=== PATIENT | female | born 1945 | race Caucasian/White ===

== ENCOUNTER 2021-03-02 13:55 | Emergency (ER) | payer MEDICARE, BC ==
[2021-03-02] MEDS ORDERED: Zofran 4 MG/2 ML VIAL IV ONE (14:14)
[2021-03-02] MEDS ORDERED: ANTIVERT 25 MG PO ONE (14:14)
[2021-03-02] MEDS ORDERED: Sodium Chloride 0.9% 500 ML 500 ML IV ONE ×2 (14:16→14:19)
[2021-03-02] MEDS ORDERED: Zofran 4 MG/2 ML VIAL ONE (14:19)
[2021-03-02] MEDS ORDERED: ANTIVERT 25 MG ONE (14:19)
[2021-03-02 14:28] LABS: Absolute Neutrophil Ct (ANC) 5.27 (1.4-6.9); BASOPHIL % 0.4 % (0.0-0.4); Basophil (Absolute #) 0.03 (0-0.4); Eosinophil % 1.3 % (0.00-5.0); Lymphocyte (Absolute #) 1.55 (1.0-4.6); Lymphocytes % 20.3 % (24.0-44.0); Mean Cell Volume 87.1 fl (78-100); Mean Corpuscular Hemoglobin 29.7 pg (26-32); Mean Corpuscular Hgb Concent. 34.1 g/dl (32-36); Mean Platelet Volume 10.8 fl (7.5-11.0); Monocyte (Absolute #) 0.69 (0.0-1.3); Platelet Count 279 K/mm3 (150-450); Red Blood Count 5.05 M/mm3 (4.1-5.4); Red Cell Distribution Width 12.5 % (11.5-14.0); White Blood Count 7.6 K/mm3 (4.0-10.5)
[2021-03-02 14:41] LABS: ALBUMIN 4.7 g/dL (3.5-5.0); ALKALINE PHOSPHATASE 70 U/L (38-126); ANION GAP 18.1 MEQ/L (5-15); BLOOD UREA NITROGEN 19 mg/dL (7-17); CHLORIDE 106 mmol/L (98-107); Carbon Dioxide 18 mmol/L (22-30); Creatinine 1 0.78 mg/dL (0.52-1.04); EST GLOMERULAR FILTRATION RATE > 60.0 ML/MIN; Glucose 132 mg/dL (74-106); MAGNESIUM 2.2 mg/dL (1.6-2.3); Potassium 3.5 mmol/L (3.5-5.1); SGOT/AST 44 U/L (14-36); SGPT/ALT 23 U/L (0-35); SODIUM 138 mmol/L (137-145); Total Protein 8.4 g/dL (6.3-8.2)
--- NOTE | 2021-03-02 14:50 | ERPHSYRPT ---
- History of Present Illness Time Seen by Provider: 03/02/21 13:56 Source: patient, family Exam Limitations: no limitations Patient Subjective Stated Complaint: SOB Triage Nursing Assessment: Patient brought back to ED via w/c and transferred to bed with assist of 1. Patient A+O X3. Patient's skin pink, warm and dry. Patient states she was sitting at work when she got numb and tingling in her legs and arms and felt dizzy. Patient complains of a "funny feeling" in the top of her abdomen. Patient complains of nausea. Patient also complains of occasional SOB. Lungs clear a/p jose. Patient has a feeling of doom that something is wrong. Physician History: 75 years old female presented in the ER with chief complaint of sudden onset feeling dizzy lightheaded while she was sitting on a chair with a feeling as if she was going to pass. Patient report feeling lightheaded dizzy with movements of her head and feels a little better with closing her eyes. Reports spinning sensation with movements of head. She also reports sudden tingling sensation in both feet and shaking of both arms. Denies any focal weakness. No difficulty speech or visual symptoms. Denies any chest pain palpitations or shortness of breath but did have some nausea with dry heaving but no vomiting. Denies any abdominal pain. Timing/Duration: today, hour(s) (3.5), sudden, improved Severity: moderate Character of Deficits: altered sensation Deficits: off balance Baseline/Normal Cognition: alert oriented x 3 Current Cognition: alert oriented x 3 Baseline Gait: walks w/o assistance Associated Symptoms: fatigue, nausea, numbness/tingling in legs/feet, trouble walking, No loss of consciousness, No vomiting, No weakness, No muscle spasms, No seizures, No slurred speech, No chest pain Allergies/Adverse Reactions: ampicillin Allergy (Verified 03/02/21 13:56) codeine Allergy (Verified 03/02/21 13:56) egg Allergy (Verified 03/02/21 13:56) yellow dye Allergy (Verified 03/02/21 13:56) Home Medications: Multivitamin 1 tab PO DAILY 03/02/21 [History] Hx Tetanus, Diphtheria Vaccination/Date Given: No Hx Influenza Vaccination/Date Given: No Hx Pneumococcal Vaccination/Date Given: No Immunizations Up to Date: Yes Travel Risk - International Travel Have you traveled outside of the country in past 3 weeks: No - Coronavirus Screening Are you exhibiting any of the following symptoms?: No Close contact with a COVID-19 positive Pt in past 14-21 Days: No - Vaccine Status Have you recieved a Covid-19 vaccination: Yes Arnp: [employer] - Review of Systems Constitutional: Fatigue, Weakness Eyes: No Symptoms Ears, Nose, & Throat: No Symptoms Respiratory: No Symptoms Cardiac: No Symptoms Abdominal/Gastrointestinal: Nausea Genitourinary Symptoms: No Symptoms Musculoskeletal: No Symptoms Skin: No Symptoms Neurological: Dizziness, Gait Changes, Sensory Changes Psychological: No Symptoms Endocrine: No Symptoms Hematologic/Lymphatic: No Symptoms Immunological/Allergic: No Symptoms - Past Medical History Pertinent Past Medical History: Yes ENT History: Glaucoma Cardiac History: Hypertension Endocrine Medical History: Hypothyroidism Other Medical History: INDIGESTION - Past Surgical History Past Surgical History: Yes Gastrointestinal: Cholecystectomy Female Surgical History: Hysterectomy - Social History Smoking Status: Never smoker Exposure to second hand smoke: Yes Drug Use: none Patient Lives Alone: No - Female History Hx Now: No - Nursing Vital Signs Nursing Vital Signs: Initial Vital Signs Temperature 98.2 F 03/02/21 13:58 Pulse Rate 73 03/02/21 13:58 Respiratory Rate 18 03/02/21 13:58 Blood Pressure 168/90 03/02/21 13:58 O2 Sat by Pulse Oximetry 99 03/02/21 13:58 Pain Scale Pain Intensity 0 - [place] Coma Scale Best Eye Response (Kathy): (4) open spontaneously Best Verbal Response (Kathy): (5) oriented Best Motor Response (Kathy): (6) obeys commands Kathy Total: 15 - Physical Exam General Appearance: no apparent distress, alert, anxiety Eye Exam: bilateral eye: normal inspection, PERRL, EOMI Ears, Nose, Throat Exam: normal ENT inspection, TMs normal, pharynx normal Neck Exam: normal inspection, non-tender, supple, full range of motion Respiratory: normal breath sounds, lungs clear, No chest tenderness Cardiovascular: regular rate/rhythm, normal heart sounds Gastrointestinal: soft, normal bowel sounds, No tenderness Back Exam: normal inspection, normal range of motion, No CVA tenderness Extremity Exam: normal inspection, normal range of motion, pelvis stable Mental Status: alert, oriented x 3, 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 Exam: normal hearing, normal speech, PERRL Coordination/Gait: normal finger to nose, normal cerebellar function, No ABN nose to finger (R), No ABN nose to finger (L) Motor/Sensory: no motor deficit, no sensory deficit, no pronator drift, negative Babinski's sign DTR: bicep (R): 2+, bicep (L): 2+, knee (R): 2+, knee (L): 2+ Skin Exam: normal color SpO2 Interpretation: normal SpO2: 99 O2 Delivery: Room Air - Course EKG Interpreted by Me: RATE (69), Sinus Rhythm, NORMAL AXIS, prolonged QT interval, Q-wave (inf leads) Ordered Tests: Active Orders 24 hr Category Date Time Status EKG-ER Only STAT Care 03/02/21 14:14 Completed EKG-ER Only STAT Care 03/02/21 14:16 Completed IV Insertion STAT Care 03/02/21 14:14 Completed Orthostatic Vital Signs STAT Care 03/02/21 14:14 Completed Tele-Health Consult ROUTINE Cons 03/02/21 15:35 Completed ABDOMEN AND PELVIS W CONTRAST [CT] Stat Exams 03/02/21 16:55 Completed CHEST 1 VIEW (PORTABLE) Stat Exams 03/02/21 14:14 Completed CHEST WITH CONTRAST [CT] Stat Exams 03/02/21 16:14 Completed HEAD WITHOUT CONTRAST [CT] Stat Exams 03/02/21 14:15 Completed CBC W DIFF Stat Lab 03/02/21 14:06 Completed CMP Stat Lab 03/02/21 14:06 Completed D-DIMER QUANTITATIVE Stat Lab 03/02/21 14:06 Completed Lactic Acid Stat Lab 03/02/21 15:02 Completed Lactic Acid Stat Lab 03/02/21 17:05 Completed MAGNESIUM Stat Lab 03/02/21 14:06 Completed TROPONIN Q3H Lab 03/02/21 14:06 Completed TROPONIN Q3H Lab 03/02/21 16:48 Completed UA W/RFX UR CULTURE Stat Lab 03/02/21 14:15 Completed Transfer Order Routine Transfer 03/02/21 Ordered Medication Summary Discontinued Medications Generic Name Dose Route Start Last Admin Trade Name Freq PRN Reason Stop Dose Admin Aspirin 324 mg 03/02/21 16:14 03/02/21 16:31 Baby Aspirin 81 Mg Chew PO 03/02/21 16:15 324 mg STAT ONE Administration Hydralazine HCl 10 mg 03/02/21 16:12 03/02/21 16:15 Apresoline 20 Mg/Ml Inj IV 03/02/21 16:13 10 mg STAT ONE Administration Hydralazine HCl Confirm 03/02/21 16:10 Apresoline 20 Mg/Ml Inj Administered 03/02/21 16:11 Dose 20 mg .ROUTE .STK-MED ONE Sodium Chloride 500 mls @ 500 mls/hr 03/02/21 14:16 03/02/21 15:33 Sodium Chloride 0.9% 500 Ml IV 03/02/21 15:15 Infused .Q1H ONE Infusion Sodium Chloride Confirm 03/02/21 14:19 Sodium Chloride 0.9% 500 Ml Administered 03/02/21 14:20 Dose 500 mls @ ud IV .STK-MED ONE Nicardipine HCl 25 mg/ Sodium 250 mls @ 0 mls/hr 03/02/21 18:18 03/02/21 18:54 Chloride IV 04/01/21 18:17 2.5 mls/hr .Q0M PRN 2.5 mls/hr TITRATE FOR BLOOD PRESSURE Administration Protocol Titrate Sodium Chloride Confirm 03/02/21 18:47 Sodium Chloride 0.9% 250 Ml Administered 03/02/21 18:48 Dose 250 mls @ ud IV .STK-MED ONE Meclizine HCl 25 mg 03/02/21 14:14 03/02/21 14:29 Antivert 25 Mg PO 03/02/21 14:15 25 mg STAT ONE Administration Meclizine HCl Confirm 03/02/21 14:19 Antivert 25 Mg Administered 03/02/21 14:20 Dose 25 mg .ROUTE .STK-MED ONE Nicardipine HCl Confirm 03/02/21 18:47 Cardene 25 Mg/10 Ml Administered 03/02/21 18:48 Dose 25 mg IV .STK-MED ONE Ondansetron HCl 4 mg 03/02/21 14:14 03/02/21 14:29 Zofran 4 Mg/2 Ml Vial IV 03/02/21 14:15 4 mg STAT ONE Administration Ondansetron HCl Confirm 03/02/21 14:19 Zofran 4 Mg/2 Ml Vial Administered 03/02/21 14:20 Dose 4 mg .ROUTE .STK-MED ONE Lab/Rad Data: Laboratory Result Diagrams 03/02/21 14:06 03/02/21 14:06 Laboratory Results 03/02/21 03/02/21 03/02/21 Range/Units 17:05 16:48 15:02 WBC (4.0-10.5) K/mm3 RBC (4.1-5.4) M/mm3 Hgb (12.0-16.0) gm/dl Hct (35-47) % MCV (78-100) fl MCH (26-32) pg MCHC (32-36) g/dl RDW (11.5-14.0) % Plt Count (150-450) K/mm3 MPV (7.5-11.0) fl Gran % (36.0-66.0) % Eos # (Auto) (0-0.5) Absolute Lymphs (auto) (1.0-4.6) Absolute Monos (auto) (0.0-1.3) Lymphocytes % (24.0-44.0) % Monocytes % (0.0-12.0) % Eosinophils % (0.00-5.0) % Basophils % (0.0-0.4) % Absolute Granulocytes (1.4-6.9) Basophils # (0-0.4) D-Dimer (215-500) ng/mL Sodium (137-145) mmol/L Potassium (3.5-5.1) mmol/L Chloride (98-107) mmol/L Carbon Dioxide (22-30) mmol/L Anion Gap (5-15) MEQ/L BUN (7-17) mg/dL Creatinine (0.52-1.04) mg/dL Estimated GFR ML/MIN Glucose (74-106) mg/dL Lactic Acid 2.1 H 2.9 H (0.4-2.0) Calcium (8.4-10.2) mg/dL Magnesium (1.6-2.3) mg/dL Total Bilirubin (0.2-1.3) mg/dL AST (14-36) U/L ALT (0-35) U/L Alkaline Phosphatase (38-126) U/L Troponin I < 0.012 (0.000-0.034) ng/mL Serum Total Protein (6.3-8.2) g/dL Albumin (3.5-5.0) g/dL Urine Color (YELLOW) Urine Appearance (CLEAR) Urine pH (5-6) Ur Specific [place] (1.005-1.025) Urine Protein (Negative) Urine Ketones (NEGATIVE) Urine Blood (0-5) Manuel/ul Urine Nitrite (NEGATIVE) Urine Bilirubin (NEGATIVE) Urine Urobilinogen (0-1) mg/dL Ur Leukocyte Esterase (NEGATIVE) Urine WBC (Auto) (0-5) /HPF Urine RBC (Auto) (0-2) /HPF U Epithel Cells (Auto) (FEW) /HPF Urine Bacteria (Auto) (NEGATIVE) /HPF Urine Mucus (Auto) (NEGATIVE) /HPF Urine Culture Reflexed (NO) Urine Glucose (NEGATIVE) mg/dL 03/02/21 03/02/21 03/02/21 Range/Units 14:15 14:06 14:06 WBC (4.0-10.5) K/mm3 RBC (4.1-5.4) M/mm3 Hgb (12.0-16.0) gm/dl Hct (35-47) % MCV (78-100) fl MCH (26-32) pg MCHC (32-36) g/dl RDW (11.5-14.0) % Plt Count (150-450) K/mm3 MPV (7.5-11.0) fl Gran % (36.0-66.0) % Eos # (Auto) (0-0.5) Absolute Lymphs (auto) (1.0-4.6) Absolute Monos (auto) (0.0-1.3) Lymphocytes % (24.0-44.0) % Monocytes % (0.0-12.0) % Eosinophils % (0.00-5.0) % Basophils % (0.0-0.4) % Absolute Granulocytes (1.4-6.9) Basophils # (0-0.4) D-Dimer 793 H* (215-500) ng/mL Sodium (137-145) mmol/L Potassium (3.5-5.1) mmol/L Chloride (98-107) mmol/L Carbon Dioxide (22-30) mmol/L Anion Gap (5-15) MEQ/L BUN (7-17) mg/dL Creatinine (0.52-1.04) mg/dL Estimated GFR ML/MIN Glucose (74-106) mg/dL Lactic Acid (0.4-2.0) Calcium (8.4-10.2) mg/dL Magnesium (1.6-2.3) mg/dL Total Bilirubin (0.2-1.3) mg/dL AST (14-36) U/L ALT (0-35) U/L Alkaline Phosphatase (38-126) U/L Troponin I < 0.012 (0.000-0.034) ng/mL Serum Total Protein (6.3-8.2) g/dL Albumin (3.5-5.0) g/dL Urine Color YELLOW (YELLOW) Urine Appearance SLIGHTLY CLOUDY (CLEAR) Urine pH 9.0 (5-6) Ur Specific [place] 1.014 (1.005-1.025) Urine Protein 30 (Negative) Urine Ketones TRACE (NEGATIVE) Urine Blood NEGATIVE (0-5) Manuel/ul Urine Nitrite NEGATIVE (NEGATIVE) Urine Bilirubin NEGATIVE (NEGATIVE) Urine Urobilinogen NEGATIVE (0-1) mg/dL Ur Leukocyte Esterase NEGATIVE (NEGATIVE) Urine WBC (Auto) NONE SEEN (0-5) /HPF Urine RBC (Auto) 0-2 (0-2) /HPF U Epithel Cells (Auto) NONE (FEW) /HPF Urine Bacteria (Auto) NONE SEEN (NEGATIVE) /HPF Urine Mucus (Auto) SLIGHT (NEGATIVE) /HPF Urine Culture Reflexed NO (NO) Urine Glucose NEGATIVE (NEGATIVE) mg/dL 03/02/21 03/02/21 Range/Units 14:06 14:06 WBC 7.6 (4.0-10.5) K/mm3 RBC 5.05 (4.1-5.4) M/mm3 Hgb 15.0 (12.0-16.0) gm/dl Hct 44.0 (35-47) % MCV 87.1 (78-100) fl MCH 29.7 (26-32) pg MCHC 34.1 (32-36) g/dl RDW 12.5 (11.5-14.0) % Plt Count 279 (150-450) K/mm3 MPV 10.8 (7.5-11.0) fl Gran % 69.0 H (36.0-66.0) % Eos # (Auto) 0.10 (0-0.5) Absolute Lymphs (auto) 1.55 (1.0-4.6) Absolute Monos (auto) 0.69 (0.0-1.3) Lymphocytes % 20.3 L (24.0-44.0) % Monocytes % 9.0 (0.0-12.0) % Eosinophils % 1.3 (0.00-5.0) % Basophils % 0.4 (0.0-0.4) % Absolute Granulocytes 5.27 (1.4-6.9) Basophils # 0.03 (0-0.4) D-Dimer (215-500) ng/mL Sodium 138 (137-145) mmol/L Potassium 3.5 (3.5-5.1) mmol/L Chloride 106 (98-107) mmol/L Carbon Dioxide 18 L (22-30) mmol/L Anion Gap 18.1 H (5-15) MEQ/L BUN 19 H (7-17) mg/dL Creatinine 0.78 (0.52-1.04) mg/dL Estimated GFR > 60.0 ML/MIN Glucose 132 H (74-106) mg/dL Lactic Acid (0.4-2.0) Calcium 10.0 (8.4-10.2) mg/dL Magnesium 2.2 (1.6-2.3) mg/dL Total Bilirubin 0.80 (0.2-1.3) mg/dL AST 44 H (14-36) U/L ALT 23 (0-35) U/L Alkaline Phosphatase 70 (38-126) U/L Troponin I (0.000-0.034) ng/mL Serum Total Protein 8.4 H (6.3-8.2) g/dL Albumin 4.7 (3.5-5.0) g/dL Urine Color (YELLOW) Urine Appearance (CLEAR) Urine pH (5-6) Ur Specific [place] (1.005-1.025) Urine Protein (Negative) Urine Ketones (NEGATIVE) Urine Blood (0-5) Manuel/ul Urine Nitrite (NEGATIVE) Urine Bilirubin (NEGATIVE) Urine Urobilinogen (0-1) mg/dL Ur Leukocyte Esterase (NEGATIVE) Urine WBC (Auto) (0-5) /HPF Urine RBC (Auto) (0-2) /HPF U Epithel Cells (Auto) (FEW) /HPF Urine Bacteria (Auto) (NEGATIVE) /HPF Urine Mucus (Auto) (NEGATIVE) /HPF Urine Culture Reflexed (NO) Urine Glucose (NEGATIVE) mg/dL - Progress Progress: improved, re-examined Progress Note: 03/02/21 16:20 75 years old is evaluated for sudden onset dizziness/lightheadedness with some e lement of positional symptoms. She is given meclizine and a small bolus of fluid. Patient blood pressure was in 200s. I have obtained prompt CT head and neurology consult is obtained. EKG showed sinus rhythm with PVCs but no acute ST elevation and negative initial troponin. Patient has some element of dehydration with elevated gap and a lactate of 2.9. No obvious focus of infection. Chest x-ray showed questionable mass in the right upper lobe pushing airway to the left . neurology do not think patient needs TPA as she does not have any focal neuro deficit but recommended TIA work-up with echo/MRI brain/MRA head and neck and controlling blood pressure as her symptoms could be secondary to hypertensive encephalopathy. Discussed with and patient is accepted for admission. Plan discussed with patient understand and agrees with it. She is given a dose of hydralazine and target is to keep blood pressure less than 180 systolic. 03/02/21 16:45 Patient was accepted for admission at [facility] but was realized later no MRI services are available over the weekend. Discussed with Dr. Dowell at [facility], reviewed patient presentation, work-up, neurology recommendations and patient is accepted for transfer. Patient has elevated D-dimer and a questionable mass in the left upper lung, CTA would be obtained prior to transfer. She is given hydralazine and her blood pressure improved to 195 systolic Discussed with .: Marisa Will see patient in: hospital (observation) Counseled pt/family regarding: lab results, diagnosis, rad results - Departure Departure Disposition: Transfer Clinical Impression: Hypertensive encephalopathy, Vertigo Condition: Stable Critical Care Time: Yes Critical Care Time(excluding separately billable procedures): Critical 30-74 mins Referrals: Sandhya Wright NP [NON-STAFF PHY W/O PRIVILEGES] -
[2021-03-02 15:39] LABS: Appearance SLIGHTLY CLOUDY (CLEAR); Bilirubin NEGATIVE (NEGATIVE); Blood NEGATIVE Ery/ul (0-5); Glucose NEGATIVE (NEGATIVE); Ketones TRACE (NEGATIVE); Leukocyte Esterase NEGATIVE (NEGATIVE); Mucus SLIGHT /HPF (NEGATIVE); Nitrite NEGATIVE (NEGATIVE); Protein,Urine Dip 30 (Negative); RBC 0-2 /HPF (0-2); Specific Gravity 1.014 (1.005-1.025); Urobilinogen NEGATIVE mg/dL (0-1)
[2021-03-02 15:51] LABS: Bacteria NONE SEEN /HPF (NEGATIVE); WBC NONE SEEN /HPF (0-5)
[2021-03-02] MEDS ORDERED: APRESOLINE 20 MG/ML INJ ONE (16:10)
[2021-03-02] MEDS ORDERED: APRESOLINE 20 MG/ML INJ IV ONE (16:12)
[2021-03-02] MEDS ORDERED: BABY ASPIRIN 81 MG CHEW PO ONE (16:14)
[2021-03-02] MEDS ORDERED: CARDENE 25 MG/10 ML*** 25 MG in Sodium Chloride 0.9% 250 ML 240 ML IV PRN (18:18)
[2021-03-02] MEDS ORDERED: CARDENE 25 MG/10 ML IV ONE (18:47)
[2021-03-02] MEDS ORDERED: Sodium Chloride 0.9% 250 ML 250 ML IV ONE (18:47)
[2021-03-02 19:11] VITALS: PULSE 80
[2021-03-02 19:31] VITALS: BP 179/110
--- NOTE | 2021-03-02 19:51 | XRAY ---
Indication: Dizziness. Facial and extremity tingling. Multiple contiguous axial images obtained through the head without contrast. Comparison: None Age-appropriate global atrophy and tiny lacunar infarct right amirah. No acute intracranial hemorrhage, abnormal extra-axial fluid collection, or mass effect. Fourth ventricle is midline without hydrocephalus. Lomas-white matter differentiation preserved. Bony calvarium intact. Visualized paranasal sinuses and mastoid air cells are clear. Impression: Remote pontine lacunar infarct. No acute intracranial abnormalities. Comment: Preliminary interpretation was made by [facility]. No critical discrepancy.
--- NOTE | 2021-03-02 19:55 | XRAY ---
Indication: Short of breath. Elevated d-dimer. Multiple contiguous axial images obtained through the chest using 100 cc Isovue 370 contrast and PE protocol. Comparison: None There is good opacification of the pulmonary arteries to include the lobar and segmental branches. No pulmonary embolus. Heart is not enlarged. Aorta is minimally arteriosclerotic without aneurysm/dissection. No pathologic mediastinal/hilar lymphadenopathy. Incidental 2.9 x 3.2 cm right thyroid hypodense noncalcified mass with mass effect effacing the trachea. Lungs demonstrates minimal posterior medial right lung dependent atelectasis/scarring. No suspicious pulmonary mass, infiltrate, or effusion. Bony thorax intact with minimal degenerative changes throughout the spine. CT abdomen/pelvis reported separately. Impression: 1. Negative pulmonary embolus. No acute cardiopulmonary abnormalities. 2. Incidental right thyroid mass as detailed with mass effect. Thyroid sonogram and nuclear medicine scan may yield further information. Comment: Preliminary interpretation was made by [facility]. No critical discrepancy.
--- NOTE | 2021-03-02 19:55 | XRAY ---
Indication: Dizziness. Comparison: None Portable chest demonstrates CT proven right thyroid mass with mass effect. Remaining heart and lungs unremarkable. Bony thorax intact.
--- NOTE | 2021-03-02 19:57 | XRAY ---
Indication: Epigastric pain. Elevated d-dimer. Multiple contiguous axial images obtained through the abdomen and pelvis using 100 cc Isovue 370 contrast. Comparison: None CT chest reported separately. Noncontrasted stomach and bowel loops nonobstructed. Normal appendix. There is mild/moderate diffuse scattered colonic fecal debris throughout. Urinary bladder markedly distended either bowel obstruction versus neurogenic bladder. Previous cholecystectomy and hysterectomy. No free fluid/air. Remaining liver, pancreas, spleen, adrenal glands, kidneys, ureters, and bladder are unremarkable. Mild scattered aortoiliac calcifications. No AAA or pathological retroperitoneal lymphadenopathy. Osseous structures intact with mild multilevel degenerative spondylosis and 2 mm L4 spondylolisthesis. Impression: 1. Distended urinary bladder. Rule out outlet obstruction versus neurogenic bladder. 2. Diffuse fecal stasis and chronic bony findings. 3. Remaining CT abdomen/pelvis with contrast exam is negative. Comment: Preliminary interpretation was made by [facility]. No critical discrepancy.
[2021-03-02 21:07] VITALS: O2SAT 99
== END 2021-03-02 19:29 | disposition short-term general hospital (02) ==
LOC: ED 13:55
DX: I67.4 Hypertensive encephalopathy (principal); R42 Dizziness and giddiness; I10 Essential (primary) hypertension; E03.9 Hypothyroidism, unspecified
CPT/HCPCS: 36000; 36415; 70450; 71045; 71260; 74177; 80053; 81001; 83605; 83735; 84484; 85025; 85379; 93005; 96374; 96375; 99285; 99291; J0360; J2405; A9270-GY

== ENCOUNTER 2023-09-24 20:18 | Emergency (ER) | payer MEDICARE ==
[2023-09-24 20:28] VITALS: TEMP 97.8
[2023-09-24 21:22] LABS: Absolute Neutrophil Ct (ANC) 4.76 x10^3/uL (1.4-6.9); BASOPHIL % 0.4 % (0.0-0.4); Basophil (Absolute #) 0.03 x10^3/uL (0-0.4); Eosinophil % 2.5 % (0.00-5.0); Eosinophil (Absolute #) 0.17 x10^3/uL (0-0.5); IMMATURE GRAN # 0.05 x10^3u/L (0.00-0.03); IMMATURE GRAN % 0.7 % (0.00-0.4); Lymphocyte (Absolute #) 1.08 x10^3/uL (1.0-4.6); Lymphocytes % 15.6 % (24.0-44.0); Mean Cell Volume 90.5 fL (78-100); Mean Corpuscular Hemoglobin 29.4 pg (26-32); Mean Corpuscular Hgb Concent. 32.5 g/dL (32-36); Mean Platelet Volume 9.9 fL (7.5-11.0); Monocyte (Absolute #) 0.82 x10^3/uL (0.0-1.3); Monocytes % 11.9 % (0.0-12.0); Neutrophil % 68.9 % (36.0-66.0); Platelet Count 284 x10^3/uL (150-450); Red Blood Count 4.42 x10^6/uL (4.1-5.4); Red Cell Distribution Width 12.5 % (11.5-14.0); White Blood Count 6.9 x10^3/uL (4.0-10.5)
[2023-09-24 21:41] LABS: ALBUMIN 3.8 g/dL (3.5-5.0); ANION GAP 11.7 MEQ/L (5-15); BILIRUBIN,TOTAL 0.4 mg/dL (0.2-1.3); Calcium 9.1 mg/dL (8.4-10.2); Creatinine 1 0.78 mg/dL (0.52-1.04); EST GLOMERULAR FILTRATION RATE 78.2 ML/MIN; Potassium 3.7 mmol/L (3.5-5.1); Total Protein 6.4 g/dL (6.3-8.2)
--- NOTE | 2023-09-24 22:21 | ERPHSYRPT ---
- History of Present Illness Time Seen by Provider: 09/24/23 20:22 Source: patient Exam Limitations: no limitations Patient Subjective Stated Complaint: pt states "I woke up from my nap this afternoon and felt short of breath and felt like my throat is closing up." Triage Nursing Assessment: pt ambulatory to bed by self, pt alert and oriented x3, skin pwd, pt c/o shortness of breath and feels like her throat is closing up, pt in no apparent distress, 97% on RA, lung sounds clear and equal throughout, pt had a [facility] 09[facility]17[facility]23 [facility] Dr[facility] Darius Valdez, steri strips in place, no reddness or drainage noted from surgical site Physician History: 78-year-old female status post thyroidectomy postop day 7 presented in the ER with chief complaint of difficulty breathing/swallowing after she woke up from a nap this afternoon. Patient felt pressure on her throat and swelling internally and externally. She applied some ice and external swelling is better but still feels sore and tight inside. Feels pain with swallowing saliva. She denies any chest pain or palpitations. No wheezing, fever chills or cough reported. No history of coronary artery disease or DVT/PE. Allergies/Adverse Reactions: ampicillin Allergy (Verified 09/24/23 20:21) codeine Allergy (Verified 09/24/23 20:21) egg Allergy (Verified 09/24/23 20:21) yellow dye Allergy (Verified 09/24/23 20:21) Home Medications: Multivitamin 1 tab PO DAILY 03/02/21 [History] Amlodipine Besylate 5 mg [Norvasc 5 mg] 5 mg PO DAILY 09/24/23 [History] Clopidogrel Bisulfate [Plavix] 75 mg PO DAILY 09/24/23 [History] Levothyroxine Sodium 100 Mcg [Synthroid 100 Mcg] 100 mcg PO DAILY 09/24/23 [History] carvediloL [Coreg] 6.25 mg PO BID 09/24/23 [History] Hx Tetanus, Diphtheria Vaccination/Date Given: No Hx Influenza Vaccination/Date Given: No Hx Pneumococcal Vaccination/Date Given: No Travel Risk - International Travel Have you traveled outside of the country in past 3 weeks: No - Coronavirus Screening Are you exhibiting any of the following symptoms?: No Close contact with a COVID-19 positive Pt in past 14-21 Days: No - Vaccine Status Have you recieved a Covid-19 vaccination: Yes 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: [employer] - Review of Systems Constitutional: No Symptoms Eyes: No Symptoms Ears, Nose, & Throat: Throat Pain, Throat Swelling Respiratory: Dyspnea Cardiac: No Symptoms Abdominal/Gastrointestinal: No Symptoms Genitourinary Symptoms: No Symptoms Musculoskeletal: No Symptoms Skin: No Symptoms Neurological: No Symptoms Endocrine: No Symptoms Hematologic/Lymphatic: No Symptoms - Past Medical History Pertinent Past Medical History: Yes Neurological History: No Pertinent History ENT History: Glaucoma Cardiac History: Hypertension Endocrine Medical History: Hypothyroidism Musculoskeletal History: No Pertinent History GI Medical History: No Pertinent History History: No Pertinent History Psycho-Social History: No Pertinent History Female Reproductive Disorders: No Pertinent History Other Medical History: INDIGESTION - Past Surgical History Past Surgical History: Yes Neuro Surgical History: No Pertinent History Cardiac: No Pertinent History Respiratory: No Pertinent History Gastrointestinal: Cholecystectomy Female Surgical History: Hysterectomy, Other Other Surgical History: thyriodectomy, R brest surgery - Social History Smoking Status: Never smoker Exposure to second hand smoke: Yes Drug Use: none Patient Lives Alone: No - Nursing Vital Signs Nursing Vital Signs: Initial Vital Signs Temperature 97.8 F 09/24/23 20:21 Pulse Rate 67 09/24/23 20:21 Respiratory Rate 18 09/24/23 20:21 Blood Pressure 155/68 09/24/23 20:21 O2 Sat by Pulse Oximetry 96 09/24/23 20:21 Pain Scale Pain Intensity 0 - Physical Exam General Appearance: no apparent distress, alert Eye Exam: PERRL/EOMI Ears, Nose, Throat Exam: pharynx normal, other (Lower anterior neck incision with erythema around with some swelling. Warm, firm consistency. Nontender. Trachea midline.) Respiratory Exam: normal breath sounds, lungs clear Cardiovascular Exam: regular rate/rhythm, normal heart sounds Gastrointestinal/Abdomen Exam: soft, normal bowel sounds Extremity Exam: normal inspection, normal range of motion Neurologic Exam: alert, oriented x 3, stroke program coordinator II-XII nml as tested Skin Exam: normal color SpO2 Interpretation: normal SpO2: 97 O2 Delivery: Room Air - Course EKG Interpreted by Me: RATE ([id number]), Sinus Rhythm, NORMAL AXIS, NORMAL INTERVALS, NORMAL QRS Ordered Tests: Active Orders 24 hr Category Date Time Status EKG-ER Only STAT Care 09/24/23 20:49 Active IV Insertion STAT Care 09/24/23 20:49 Active CHEST WITH CONTRAST [CT] Stat Exams 09/24/23 22:02 Completed NECK WITH CONTRAST [CT] Stat Exams 09/24/23 22:02 Completed CBC W DIFF Stat Lab 09/24/23 21:20 Completed CMP Stat Lab 09/24/23 21:20 Completed TROPONIN Q4H Lab 09/24/23 21:20 Completed TROPONIN Q4H Lab 09/25/23 00:45 Received TROPONIN Q4H Lab 09/25/23 05:00 Ordered Lab/Rad Data: Laboratory Result Diagrams 09/24/23 21:20 09/24/23 21:20 Laboratory Results 09/24/23 09/24/23 09/24/23 Range/Units 21:20 21:20 21:20 WBC 6.9 (4.0-10.5) x10^3/uL RBC 4.42 (4.1-5.4) x10^6/uL Hgb 13.0 (12.0-16.0) g/dL Hct 40.0 (35-47) % MCV 90.5 (78-100) fL MCH 29.4 (26-32) pg MCHC 32.5 (32-36) g/dL RDW 12.5 (11.5-14.0) % Plt Count 284 (150-450) x10^3/uL MPV 9.9 (7.5-11.0) fL Gran % 68.9 H (36.0-66.0) % Immature Gran % (Auto) 0.7 H (0.00-0.4) % Nucleat RBC Rel Count 0.0 (0.00-0.1) % Eos # (Auto) 0.17 (0-0.5) x10^3/uL Immature Gran # (Auto) 0.05 H (0.00-0.03) x10^3u/L Absolute Lymphs (auto) 1.08 (1.0-4.6) x10^3/uL Absolute Monos (auto) 0.82 (0.0-1.3) x10^3/uL Absolute Nucleated RBC 0.00 (0.00-0.01) x10^3u/L Lymphocytes % 15.6 L (24.0-44.0) % Monocytes % 11.9 (0.0-12.0) % Eosinophils % 2.5 (0.00-5.0) % Basophils % 0.4 (0.0-0.4) % Absolute Granulocytes 4.76 (1.4-6.9) x10^3/uL Basophils # 0.03 (0-0.4) x10^3/uL Sodium 135 L (137-145) mmol/L Potassium 3.7 (3.5-5.1) mmol/L Chloride 102 (98-107) mmol/L Carbon Dioxide 25 (22-30) mmol/L Anion Gap 11.7 (5-15) MEQ/L BUN 11 (7-17) mg/dL Creatinine 0.78 (0.52-1.04) mg/dL Estimated GFR 78.2 ML/MIN Glucose 117 H (74-106) mg/dL Calcium 9.1 (8.4-10.2) mg/dL Total Bilirubin 0.40 (0.2-1.3) mg/dL AST 22 (14-36) U/L ALT 16 (0-35) U/L Alkaline Phosphatase 60 (38-126) U/L Troponin I 0.025 (0.000-0.034) ng/mL Serum Total Protein 6.4 (6.3-8.2) g/dL Albumin 3.8 (3.5-5.0) g/dL - Progress Progress: improved, re-examined Progress Note: 09/24/23 22:20 78-year-old female status post thyroidectomy postop day 7 presented in the ER with chief complaint of difficulty breathing/swallowing after she woke up from a nap this afternoon. Patient felt pressure on her throat and swelling inte rnally and externally. She applied some ice and external swelling is better but still feels sore and tight inside. Feels pain with swallowing saliva. She denies any chest pain or palpitations. No wheezing, fever chills or cough reported. No history of coronary artery disease or DVT/PE. 09/25/23 01:01 Patient is not in any distress throughout her stay in the ER. Has normal white count, unremarkable chemistries and troponins. I have obtain CT neck with contrast which showed postoperative changes with a thin rim enhancing collection in the operating bed about 1.4 cm in maximum thickness no extension into mediastinum. It also showed another collection//abscess with air foci in the anterior soft tissue overlying the strap muscle in the operating bed area with maximum thickness of 1.2 cm with overlying subcutaneous fat stranding. I have discussed with Dr. Colon ENT partner for Dr. Lara who did surgery, reviewed history, work-up and think it is normal postoperative seroma and does not need any emergent intervention and she can follow-up outpatient with primary ENT as scheduled on Thursday. Also obtained CTA chest which is negative for PE or any other acute intrathoracic findings. Patient is not in any distress and no increase in the swelling and no difficulty breathing or swallowing throughout her stay in the ER. I have discussed the results of work-up and ENT recommendat ions with patient and plan for outpatient follow-up which she understand and agrees with it. Stable for discharge. 09/25/23 01:[address] Other (Dr. Isaiah LEMUS [facility] at 1 AM) Counseled pt/family regarding: lab results, diagnosis, need for follow-up, rad results Medical Desision Making - Discussion of managment Care discussed with:: specialist (Dr. Isaiah LEMUS [facility] at 1 AM) Reviewed:: Test results Agreed on:: need for follow-up Will see patient: In office - Diagnostic Testing Diagnostic test were ordered, analyzed, and reviewed by me: Yes Radiological Interpretation: Reviewed by me, Teleradiologist Report - Departure Departure Disposition: Home Clinical Impression: Localized swelling, mass and lump, neck Condition: Stable Critical Care Time: No Referrals: RODOLFO CHADWICK MD [Primary Care Provider] - Follow up with PCP 1 day Additional Instructions: Follow-up with your primary ENT surgeon for reevaluation as scheduled on Thursday. Take Tylenol as needed. Return to ER for worsening of swelling, difficulty breathing/swallowing/discharge/fever chills etc.
--- NOTE | 2023-09-24 22:57 | XRAY ---
CLINICAL HISTORY:swelling. post surgery COMPARISON:None. TECHNIQUE:CT scan of the neck was performed with the administration of intravenous contrast. Sagittal and coronal reconstructions were also obtained. FINDINGS: The thyroid gland is not visualized with thin rim enhancing collections are seen in the operative bed anteriorly and bilaterally, more on the left side, measuring 14 mm in maximum thickness with few air foci and surronding ill-defined soft tissue stranding. No extension of the collection is seen in the mediastinum. Another collection with air foci also seen in the anterior soft tissues overlying the strap muscles at the operative bed, measuring 12 mm in maximum thickness with overlying subcutaneous fat stranding. Normal CT appearance of the supra-and infra hyoid deep neck spaces. Normal CT appearance of the larynx, namely the supraglottic, glottic and infra, glottic spaces. Unremarkable nasal and Dio pharyngeal mucosal spaces. Normal CT appearance of the sublingual, submandibular and parotid salivary glands. The base of the tongue, the uvula, the epiglottis, the vocal cords, the upper trachea, the upper oesophagus are unremarkable. No significant cervical adenopathy noted. The visualized cervical spine shows degenerative changes. IMPRESSION: 1. Post-operative status with non visualization of thyroid gland and thin rim enhancing collections in the operative bed measuring 14 mm in maximum thickness. No extension of collection seen in the mediastinum. 2. Another collection/abscess with air foci in the anterior soft tissues overlying the strap muscles at the operative bed, measuring 12 mm in maximum thickness with overlying subcutaneous fat stranding. Electronically Signed by: Romelia Hinkle MD. (09/24/2023 21:56:13 SEARCH SPECIALIST)
--- NOTE | 2023-09-24 23:20 | XRAY ---
CLINICAL HISTORY:SOB, PE protocol COMPARISON:None. TECHNIQUE:CT pulmonary angiogram was performed using intravenous contrast with sagittal and coronal reconstructions. FINDINGS: The main pulmonary trunk, right and left pulmonary arteries with the ascending and descending branches are normal. The segmental branches are normal in caliber and show good contrast opacification with no evidence of filling defect/thrombosis. No evidence of any focal filling defect seen. The aortic arch and visualized thoracic aorta show mild atherosclerotic changes with calcified plaques. Bilateral lung campoverde are normal in translucency and markings. Few millimetric right hilar and mediastinal nodes. No evidence of pleural/pericardial effusion. Scanned upper abdomen shows calcific focus in spleen. Scanned portion of neck shows postoperative status with nonvisualization of thyroid gland and hypodense collections in the left operative bed and in the anterior soft tissue of neck. IMPRESSION: 1. Unremarkable CT pulmonary angiography, no evidence of acute thromboembolism. 2. Hypodense collections at the left thyroid bed and adajcent anterior soft tissue of the neck. Ultrasound correlation is suggested. Electronically Signed by: Romelia Hinkle MD. (09/24/2023 22:17:52 INSURANCE COUNSELOR)
[2023-09-25 01:06] VITALS: O2SAT 97
[2023-09-25 01:09] VITALS: BP 170/76; PULSE 77; RESP 16
== END 2023-09-25 01:16 | disposition home or self-care (01) ==
LOC: ED 20:18
DX: R22.1 Localized swelling, mass and lump, neck (principal); R06.02 Shortness of breath; J02.9 Acute pharyngitis, unspecified; I10 Essential (primary) hypertension; Z79.02 Long term (current) use of antithrombotics/antiplatelets; Z79.899 Other long term (current) drug therapy
CPT/HCPCS: 36000; 36415; 70491; 71260; 80053; 84484; 85025; 93005; 99284

== ENCOUNTER 2023-10-26 08:47 | Observation (INO) | payer MEDICARE ==
[2023-10-26] MEDS ORDERED: Zofran 4 MG/2 ML VIAL IV ONE (08:59)
[2023-10-26] MEDS ORDERED: PROTONIX 40 MG IV*** 80 MG in Sodium Chloride 0.9% 500 ML 500 ML IV SCH (09:00)
[2023-10-26] MEDS ORDERED: Zofran 4 MG/2 ML VIAL ONE (09:20)
[2023-10-26] MEDS: Sodium Chloride 0.9% 1000 ML 1,000 ML IV SCH ×3 (09:23→23:51)
--- NOTE | 2023-10-26 09:30 | XRAY ---
Indication: Short of breath. Comparison: March 02, 2021 Portable chest remains inflated and clear. Heart not enlarged. Previous right thyroid mass appears smaller. Bony thorax intact. No new/acute findings.
[2023-10-26 09:32] LABS: BASOPHIL % 0.4 % (0.0-0.4); Basophil (Absolute #) 0.04 x10^3/uL (0-0.4); Eosinophil % 0.5 % (0.00-5.0); Eosinophil (Absolute #) 0.05 x10^3/uL (0-0.5); Hematocrit 32.7 % (35-47); Hemoglobin 10.7 g/dL (12.0-16.0); IMMATURE GRAN # 0.08 x10^3u/L (0.00-0.03); IMMATURE GRAN % 0.9 % (0.00-0.4); Lymphocyte (Absolute #) 0.79 x10^3/uL (1.0-4.6); Lymphocytes % 8.5 % (24.0-44.0); Mean Cell Volume 92.4 fL (78-100); Mean Corpuscular Hemoglobin 30.2 pg (26-32); Mean Corpuscular Hgb Concent. 32.7 g/dL (32-36); Mean Platelet Volume 10.9 fL (7.5-11.0); Monocyte (Absolute #) 0.61 x10^3/uL (0.0-1.3); Monocytes % 6.6 % (0.0-12.0); Neutrophil % 83.1 % (36.0-66.0); Platelet Count 314 x10^3/uL (150-450); Red Blood Count 3.54 x10^6/uL (4.1-5.4); White Blood Count 9.3 x10^3/uL (4.0-10.5)
[2023-10-26 10:03] LABS: ALBUMIN 3.8 g/dL (3.5-5.0); ALKALINE PHOSPHATASE 43 U/L (38-126); AMYLASE 70 U/L (30-110); ANION GAP 13.6 MEQ/L (5-15); BLOOD UREA NITROGEN 56 mg/dL (7-17); CHLORIDE 104 mmol/L (98-107); Calcium 9.3 mg/dL (8.4-10.2); Carbon Dioxide 24 mmol/L (22-30); Creatinine 1 0.89 mg/dL (0.52-1.04); EST GLOMERULAR FILTRATION RATE 66.7 ML/MIN; Glucose 167 mg/dL (74-106); LIPASE 107 U/L (23-300); NT PRO BNPII < 20.0 pg/mL (<300); Potassium 4.2 mmol/L (3.5-5.1); SGOT/AST 30 U/L (14-36); SGPT/ALT 19 U/L (0-35); SODIUM 138 mmol/L (137-145); Total Protein 6.5 g/dL (6.3-8.2)
[2023-10-26 10:26] LABS: D-DIMER QUANTITATIVE 0.58 mg/L (0.0-0.50); PROTIME 10.9 SECONDS (9.4-12.5); PTT 20.7 SECONDS (25.1-36.5)
[2023-10-26 11:00] LABS: INFLUENZA A NEGATIVE (NEGATIVE); INFLUENZA B NEGATIVE (NEGATIVE); RESPIRATORY SYNCTIAL VIRUS NEGATIVE (NEGATIVE); SARS-CoV-2 Xpert Express NEGATIVE (NEGATIVE)
[2023-10-26 11:06] LABS: ABO TYPING O; Antibody Screen NEGATIVE (NEGATIVE); RH TYPING POSITIVE
[2023-10-26 11:15] LABS: Appearance Clear (Clear); Bacteria None Seen /HPF (None Seen); Bilirubin Negative (Negative); Blood Negative (Negative); Epithelial Cells Rare /HPF (None Seen); Glucose, Urine Negative (Negative); Hyaline Casts NONE SEEN /LPF (0-2); Ketones Trace (Negative); Leukocyte Esterase Negative (Negative); Nitrite Negative (Negative); Protein,Urine Dip Negative (Negative); RBC 0-2 /HPF (0-5); Urobilinogen 0.2 mg/dL (0.2); WBC 0-2 /HPF (0-5)
[2023-10-26 11:20] LABS: ADD URINE CULTURE? NO (NO)
--- NOTE | 2023-10-26 12:25 | ERPHSYRPT ---
- History of Present Illness Time Seen by Provider: 10/26/23 09:00 Source: patient Exam Limitations: no limitations Patient Subjective Stated Complaint: Pt began feeling short of breath in the middle of the night when she would stand up Triage Nursing Assessment: Pt arrivest ED via POV. Pt brought back to room 6 via wheelchair. Pt reports SOB, emesis x 2 with last emesis being black in color. Pt is alert, oriented and not in distress. Pt states that she had covid 2 weeks ago. Pt's skin is WNL. Pt's breathing is easy, non-labored. Pt has no hx of respiratory issues. Physician History: Patient is a 78-year-old white female who presents with a complaint of shortness of breath not feeling well with nausea and vomiting with black tarry emesis. She also says she is worse when she stands. This started at midnight last night. Timing/Duration: yesterday Severity: moderate Associated Symptoms: nausea, vomiting, shortness of breath Allergies/Adverse Reactions: ampicillin Allergy (Verified 10/26/23 08:56) codeine Allergy (Verified 10/26/23 08:56) egg Allergy (Verified 10/26/23 08:56) yellow dye Allergy (Verified 10/26/23 08:56) Home Medications: Multivitamin 1 tab PO DAILY 03/02/21 [History] Amlodipine Besylate 5 mg [Norvasc 5 mg] 5 mg PO DAILY 09/24/23 [History] Clopidogrel Bisulfate [Plavix] 75 mg PO DAILY 09/24/23 [History] Levothyroxine Sodium 100 Mcg [Synthroid 100 Mcg] 100 mcg PO DAILY 09/24/23 [History] carvediloL [Coreg] 6.25 mg PO BID 09/24/23 [History] Hx Tetanus, Diphtheria Vaccination/Date Given: No Hx Influenza Vaccination/Date Given: No Hx Pneumococcal Vaccination/Date Given: No Travel Risk - International Travel Have you traveled outside of the country in past 3 weeks: No - Coronavirus Screening Are you exhibiting any of the following symptoms?: Yes Symptoms: Shortness of Breath - Vaccine Status Have you recieved a Covid-19 vaccination: Yes 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: [employer] - Review of Systems Constitutional: No Fever, No Chills Eyes: No Symptoms Ears, Nose, & Throat: No Symptoms Respiratory: No Cough, No Dyspnea Cardiac: No Chest Pain, No Edema, No Syncope Abdominal/Gastrointestinal: No Abdominal Pain, No Nausea, No Vomiting, No Diarrhea Genitourinary Symptoms: No Dysuria Musculoskeletal: No Back Pain, No Neck Pain Skin: No Rash Neurological: No Dizziness, No Focal Weakness, No Sensory Changes Psychological: No Symptoms Endocrine: No Symptoms All Other Systems: Reviewed and Negative - Past Medical History Pertinent Past Medical History: Yes Neurological History: No Pertinent History ENT History: Glaucoma Cardiac History: Hypertension Respiratory History: No Pertinent History Endocrine Medical History: Hypothyroidism Musculoskeletal History: No Pertinent History GI Medical History: No Pertinent History History: No Pertinent History Psycho-Social History: No Pertinent History Female Reproductive Disorders: No Pertinent History Other Medical History: INDIGESTION - Past Surgical History Past Surgical History: Yes Neuro Surgical History: No Pertinent History Cardiac: No Pertinent History Respiratory: No Pertinent History Gastrointestinal: Cholecystectomy Female Surgical History: Hysterectomy, Other Other Surgical History: thyriodectomy, R brest surgery - Social History Smoking Status: Never smoker Exposure to second hand smoke: Yes Drug Use: none Patient Lives Alone: No - Nursing Vital Signs Nursing Vital Signs: Initial Vital Signs Temperature 97.6 F 10/26/23 08:48 Pulse Rate 85 10/26/23 08:48 Respiratory Rate 18 10/26/23 08:48 Blood Pressure 110/70 10/26/23 08:48 O2 Sat by Pulse Oximetry 96 10/26/23 08:48 Pain Scale Pain Intensity 3 - Physical Exam General Appearance: mild distress, alert Eye Exam: PERRL/EOMI, eyes nml inspection Ears, Nose, Throat Exam: normal ENT inspection, TMs normal, pharynx normal, moist mucous membranes Neck Exam: normal inspection, non-tender, supple, full range of motion Respiratory Exam: normal breath sounds, lungs clear, No respiratory distress Cardiovascular Exam: regular rate/rhythm, normal heart sounds, normal peripheral pulses Gastrointestinal/Abdomen Exam: soft, normal bowel sounds, No tenderness, No mass Back Exam: normal inspection, normal range of motion, No CVA tenderness, No vertebral tenderness Extremity Exam: normal inspection, normal range of motion, pelvis stable Neurologic Exam: alert, oriented x 3, cooperative, normal mood/affect, nml cerebellar function, nml station & gait, sensation nml, No motor deficits Skin Exam: normal color, warm, dry, No rash Lymphatic Exam: No adenopathy SpO2 Interpretation: normal SpO2: 97 O2 Delivery: Room Air - Course Nursing assessment & vital signs reviewed: Yes EKG Interpreted by Me: RATE (98), Sinus Rhythm, Left Sayre Deviation, prolonged QT interval - Radiology Exams Chest X-ray Interpretation: Reviewed by me Ordered Tests: Active Orders 24 hr Category Date Time Status CHEST 1 VIEW (PORTABLE) Stat Exams 10/26/23 09:00 Completed AMYLASE Stat Lab 10/26/23 09:25 Completed CBC W DIFF Stat Lab 10/26/23 09:25 Completed CMP Stat Lab 10/26/23 09:25 Completed D-DIMER QUANTITATIVE Stat Lab 10/26/23 09:25 Completed LIPASE Stat Lab 10/26/23 09:25 Completed Lactic Acid Stat Lab 10/26/23 09:13 Completed Lactic Acid Stat Lab 10/26/23 11:18 Received NT PRO BNPII Stat Lab 10/26/23 09:25 Completed OB-FECAL SCREEN Stat Lab 10/26/23 Ordered PROTIME WITH INR Stat Lab 10/26/23 09:25 Completed PTT Stat Lab 10/26/23 09:25 Completed TROPONIN Q4H Lab 10/26/23 09:25 Completed TROPONIN Q4H Lab 10/26/23 13:15 Ordered TROPONIN Q4H Lab 10/26/23 17:15 Ordered UA W/RFX UR CULTURE Stat Lab 10/26/23 10:54 Completed Medication Summary Generic Name Dose Route Start Last Admin Trade Name Freq PRN Reason Stop Dose Admin Sodium Chloride 1,000 mls @ 100 mls/hr 10/26/23 09:00 10/26/23 09:23 Sodium Chloride 0.9% 1000 Ml IV 11/25/23 08:59 100 mls/hr .Q10H [place] Administration Pantoprazole Sodium 80 mg/ 500 mls @ 50 mls/hr 10/26/23 09:00 10/26/23 09:38 Sodium Chloride IV 11/25/23 08:59 50 mls/hr .Q10H [place] 50 mls/hr Administration Discontinued Medications Generic Name Dose Route Start Last Admin Trade Name Freq PRN Reason Stop Dose Admin Ondansetron HCl 4 mg 10/26/23 08:59 10/26/23 09:23 Ondansetron Hcl 4 Mg/2 Ml Vial IV 10/26/23 09:00 4 mg STAT ONE Administration Ondansetron HCl Confirm 10/26/23 09:20 Ondansetron Hcl 4 Mg/2 Ml Vial Administered 10/26/23 09:21 Dose 4 mg .ROUTE .STK-MED ONE Lab/Rad Data: Laboratory Result Diagrams 10/26/23 09:25 10/26/23 09:25 Laboratory Results 10/26/23 10/26/23 10/26/23 Range/Units 10:54 10:10 10:10 WBC (4.0-10.5) x10^3/uL RBC (4.1-5.4) x10^6/uL Hgb (12.0-16.0) g/dL Hct (35-47) % MCV (78-100) fL MCH (26-32) pg MCHC (32-36) g/dL RDW (11.5-14.0) % Plt Count (150-450) x10^3/uL MPV (7.5-11.0) fL Gran % (36.0-66.0) % Immature Gran % (Auto) (0.00-0.4) % Nucleat RBC Rel Count (0.00-0.1) % Eos # (Auto) (0-0.5) x10^3/uL Immature Gran # (Auto) (0.00-0.03) x10^3u/L Absolute Lymphs (auto) (1.0-4.6) x10^3/uL Absolute Monos (auto) (0.0-1.3) x10^3/uL Absolute Nucleated RBC (0.00-0.01) x10^3u/L Lymphocytes % (24.0-44.0) % Monocytes % (0.0-12.0) % Eosinophils % (0.00-5.0) % Basophils % (0.0-0.4) % Absolute Granulocytes (1.4-6.9) x10^3/uL Basophils # (0-0.4) x10^3/uL PT (9.4-12.5) SECONDS INR (0.8-3.0) APTT (25.1-36.5) SECONDS D-Dimer (0.0-0.50) mg/L Sodium (137-145) mmol/L Potassium (3.5-5.1) mmol/L Chloride (98-107) mmol/L Carbon Dioxide (22-30) mmol/L Anion Gap (5-15) MEQ/L BUN (7-17) mg/dL Creatinine (0.52-1.04) mg/dL Estimated GFR ML/MIN Glucose (74-106) mg/dL Lactic Acid (0.4-2.0) Calcium (8.4-10.2) mg/dL Total Bilirubin (0.2-1.3) mg/dL AST (14-36) U/L ALT (0-35) U/L Alkaline Phosphatase (38-126) U/L Troponin I (0.000-0.034) ng/mL NT-Pro-B Natriuret Pep (<300) pg/mL Serum Total Protein (6.3-8.2) g/dL Albumin (3.5-5.0) g/dL Amylase (30-110) U/L Lipase (23-300) U/L Urine Color Yellow (Yellow) Urine Appearance Clear (Clear) Urine pH 7.0 (4.6-8.0) Ur Specific [place] 1.020 (1.005-1.030) Urine Protein Negative (Negative) Urine Glucose (UA) Negative (Negative) mg/dL Urine Ketones Trace A (Negative) Urine Blood Negative (Negative) Urine Nitrite Negative (Negative) Urine Bilirubin Negative (Negative) Urine Urobilinogen 0.2 (0.2) mg/dL Ur Leukocyte Esterase Negative (Negative) U Hyaline Cast (Auto) NONE SEEN (0-2) /LPF Urine Microscopic RBC 0-2 (0-5) /HPF Urine Microscopic WBC 0-2 (0-5) /HPF Ur Epithelial Cells Rare (None Seen) /HPF Urine Bacteria None Seen (None Seen) /HPF Urine Culture Reflexed NO (NO) Influenza Type A Ag NEGATIVE (NEGATIVE) Influenza Type B Ag NEGATIVE (NEGATIVE) RSV (PCR) NEGATIVE (NEGATIVE) SARS-CoV-2 (PCR) NEGATIVE (NEGATIVE) ABO Group O Rh Factor POSITIVE Antibody Screen NEGATIVE (NEGATIVE) 10/26/23 10/26/23 10/26/23 Range/Units 09:25 09:25 09:25 WBC (4.0-10.5) x10^3/uL RBC (4.1-5.4) x10^6/uL Hgb (12.0-16.0) g/dL Hct (35-47) % MCV (78-100) fL MCH (26-32) pg MCHC (32-36) g/dL RDW (11.5-14.0) % Plt Count (150-450) x10^3/uL MPV (7.5-11.0) fL Gran % (36.0-66.0) % Immature Gran % (Auto) (0.00-0.4) % Nucleat RBC Rel Count (0.00-0.1) % Eos # (Auto) (0-0.5) x10^3/uL Immature Gran # (Auto) (0.00-0.03) x10^3u/L Absolute Lymphs (auto) (1.0-4.6) x10^3/uL Absolute Monos (auto) (0.0-1.3) x10^3/uL Absolute Nucleated RBC (0.00-0.01) x10^3u/L Lymphocytes % (24.0-44.0) % Monocytes % (0.0-12.0) % Eosinophils % (0.00-5.0) % Basophils % (0.0-0.4) % Absolute Granulocytes (1.4-6.9) x10^3/uL Basophils # (0-0.4) x10^3/uL PT 10.9 (9.4-12.5) SECONDS INR 1.00 (0.8-3.0) APTT 20.7 L (25.1-36.5) SECONDS D-Dimer 0.58 H (0.0-0.50) mg/L Sodium 138 (137-145) mmol/L Potassium 4.2 (3.5-5.1) mmol/L Chloride 104 (98-107) mmol/L Carbon Dioxide 24 (22-30) mmol/L Anion Gap 13.6 (5-15) MEQ/L BUN 56 H (7-17) mg/dL Creatinine 0.89 (0.52-1.04) mg/dL Estimated GFR 66.7 ML/MIN Glucose 167 H (74-106) mg/dL Lactic Acid (0.4-2.0) Calcium 9.3 (8.4-10.2) mg/dL Total Bilirubin 0.50 (0.2-1.3) mg/dL AST 30 (14-36) U/L ALT 19 (0-35) U/L Alkaline Phosphatase 43 (38-126) U/L Troponin I < 0.012 (0.000-0.034) ng/mL NT-Pro-B Natriuret Pep < 20.0 (<300) pg/mL Serum Total Protein 6.5 (6.3-8.2) g/dL Albumin 3.8 (3.5-5.0) g/dL Amylase 70 (30-110) U/L Lipase 107 (23-300) U/L Urine Color (Yellow) Urine Appearance (Clear) Urine pH (4.6-8.0) Ur Specific [place] (1.005-1.030) Urine Protein (Negative) Urine Glucose (UA) (Negative) mg/dL Urine Ketones (Negative) Urine Blood (Negative) Urine Nitrite (Negative) Urine Bilirubin (Negative) Urine Urobilinogen (0.2) mg/dL Ur Leukocyte Esterase (Negative) U Hyaline Cast (Auto) (0-2) /LPF Urine Microscopic RBC (0-5) /HPF Urine Microscopic WBC (0-5) /HPF Ur Epithelial Cells (None Seen) /HPF Urine Bacteria (None Seen) /HPF Urine Culture Reflexed (NO) Influenza Type A Ag (NEGATIVE) Influenza Type B Ag (NEGATIVE) RSV (PCR) (NEGATIVE) SARS-CoV-2 (PCR) (NEGATIVE) ABO Group Rh Factor Antibody Screen (NEGATIVE) 10/26/23 10/26/23 Range/Units 09:25 09:13 WBC 9.3 (4.0-10.5) x10^3/uL RBC 3.54 L (4.1-5.4) x10^6/uL Hgb 10.7 L (12.0-16.0) g/dL Hct 32.7 L (35-47) % MCV 92.4 (78-100) fL MCH 30.2 (26-32) pg MCHC 32.7 (32-36) g/dL RDW 13.0 (11.5-14.0) % Plt Count 314 (150-450) x10^3/uL MPV 10.9 (7.5-11.0) fL Gran % 83.1 H (36.0-66.0) % Immature Gran % (Auto) 0.9 H (0.00-0.4) % Nucleat RBC Rel Count 0.0 (0.00-0.1) % Eos # (Auto) 0.05 (0-0.5) x10^3/uL Immature Gran # (Auto) 0.08 H (0.00-0.03) x10^3u/L Absolute Lymphs (auto) 0.79 L (1.0-4.6) x10^3/uL Absolute Monos (auto) 0.61 (0.0-1.3) x10^3/uL Absolute Nucleated RBC 0.00 (0.00-0.01) x10^3u/L Lymphocytes % 8.5 L (24.0-44.0) % Monocytes % 6.6 (0.0-12.0) % Eosinophils % 0.5 (0.00-5.0) % Basophils % 0.4 (0.0-0.4) % Absolute Granulocytes 7.70 H (1.4-6.9) x10^3/uL Basophils # 0.04 (0-0.4) x10^3/uL PT (9.4-12.5) SECONDS INR (0.8-3.0) APTT (25.1-36.5) SECONDS D-Dimer (0.0-0.50) mg/L Sodium (137-145) mmol/L Potassium (3.5-5.1) mmol/L Chloride (98-107) mmol/L Carbon Dioxide (22-30) mmol/L Anion Gap (5-15) MEQ/L BUN (7-17) mg/dL Creatinine (0.52-1.04) mg/dL Estimated GFR ML/MIN Glucose (74-106) mg/dL Lactic Acid 2.3 H (0.4-2.0) Calcium (8.4-10.2) mg/dL Total Bilirubin (0.2-1.3) mg/dL AST (14-36) U/L ALT (0-35) U/L Alkaline Phosphatase (38-126) U/L Troponin I (0.000-0.034) ng/mL NT-Pro-B Natriuret Pep (<300) pg/mL Serum Total Protein (6.3-8.2) g/dL Albumin (3.5-5.0) g/dL Amylase (30-110) U/L Lipase (23-300) U/L Urine Color (Yellow) Urine Appearance (Clear) Urine pH (4.6-8.0) Ur Specific [place] (1.005-1.030) Urine Protein (Negative) Urine Glucose (UA) (Negative) mg/dL Urine Ketones (Negative) Urine Blood (Negative) Urine Nitrite (Negative) Urine Bilirubin (Negative) Urine Urobilinogen (0.2) mg/dL Ur Leukocyte Esterase (Negative) U Hyaline Cast (Auto) (0-2) /LPF Urine Microscopic RBC (0-5) /HPF Urine Microscopic WBC (0-5) /HPF Ur Epithelial Cells (None Seen) /HPF Urine Bacteria (None Seen) /HPF Urine Culture Reflexed (NO) Influenza Type A Ag (NEGATIVE) Influenza Type B Ag (NEGATIVE) RSV (PCR) (NEGATIVE) SARS-CoV-2 (PCR) (NEGATIVE) ABO Group Rh Factor Antibody Screen (NEGATIVE) - Progress Progress: unchanged Discussed with Dr.: Other (Sean) Medical Desision Making - Discussion of managment Care discussed with:: hospitalist (Dr Estrada) Reviewed:: Test results Agreed on:: decision to admit Will see patient: in hospital - Diagnostic Testing Diagnostic test were ordered, analyzed, and reviewed by me: Yes Radiological Interpretation: Reviewed by me - Risk of complications The pt has a mod risk of morbidity or mortality based on: Need for prescription drug management - Departure Departure Disposition: Observation Clinical Impression: Orthostatic hypotension, Dehydration Condition: Fair Critical Care Time: No Referrals: RODOLFO CHADWICK MD [Primary Care Provider] - Follow up/PCP as directed
[2023-10-26] MEDS ORDERED: TYLENOL 325 MG PO PRN (13:37)
[2023-10-26] MEDS ORDERED: Zofran 4 MG/2 ML VIAL IV PRN (13:37)
--- NOTE | 2023-10-26 13:48 | PCM.HP ---
History of Present Illness - Chief Complaint Chief Complaint: Orthostatic hypotension, Dehydration Date: 10/26/23 History of Present Illness: is a 78 year old female with PMHX of HTN, hypothyroidism, thryroidectomy, GERD, headaches, and glaucoma. She presented to the ER today with complaints of shortness of breath, not feeling well, nausea, and vomiting with black tarry emesis. She epxlains she is ok when laying and sitting but SOB is worse with standing. This all started at midnight last night. IV fluids and Protonix gtt started in ER. She reports a post COVID cough for 2 weeks now that is dry. She also has a H/A with associated photophobia. Chest XR negative. Hgb stable at 10.7. WBC normal. COVID and flu negative. Will continue IV fluids as pt had orthostatic hypotension in ER. Continue PPI IV. She denies CP, abd. pain. - Review of Systems Constitutional: No Fever, No Chills Eyes: Photophobia, Other Ears, Nose, & Throat: No Symptoms Respiratory: Short Of Breath, No Cough Cardiac: No Chest Pain, No Edema, No Syncope Abdominal/Gastrointestinal: Nausea, Vomiting, No Abdominal Pain, No Diarrhea Genitourinary Symptoms: No Dysuria Musculoskeletal: No Back Pain, No Neck Pain Skin: No Rash Neurological: Headache, No Dizziness, No Focal Weakness, No Sensory Changes Psychological: No Symptoms Endocrine: No Symptoms Hematologic/Lymphatic: No Symptoms Immunological/Allergic: No Symptoms Medications & Allergies Home Medications: Home Medication List Multivitamin 1 tab PO DAILY 03/02/21 [History Confirmed 10/26/23] Amlodipine Besylate 5 mg [Norvasc 5 mg] 5 mg PO DAILY 09/24/23 [History Confirmed 10/26/23] Clopidogrel Bisulfate [Plavix] 75 mg PO DAILY 09/24/23 [History Confirmed 10/26/23] Levothyroxine Sodium 100 Mcg [Synthroid 100 Mcg] 100 mcg PO DAILY 09/24/23 [History Confirmed 10/26/23] carvediloL [Coreg] 6.25 mg PO BID 09/24/23 [History Confirmed 10/26/23] Allergies/Adverse Reactions: Allergies Allergy/AdvReac Type Severity Reaction Status Date / Time ampicillin Allergy Verified 10/26/23 08:56 codeine Allergy Verified 10/26/23 08:56 egg Allergy Verified 10/26/23 08:56 yellow dye Allergy Verified 10/26/23 08:56 - Past Medical History Past Medical History: Yes Neurological History: No Pertinent History ENT History: Glaucoma Cardiac History: Hypertension Respiratory History: No Pertinent History Endocrine Medical History: Hypothyroidism Musculoskelatal History: No Pertinent History GI Medical History: No Pertinent History History: No Pertinent History Pyscho-Social History: No Pertinent History Reproductive Disorders: No Pertinent History Comment: INDIGESTION - Past Surgical History Past Surgical History: Yes Neuro Surgical History: No Pertinent History Cardiac History: No Pertinent History Respiratory Surgery: No Pertinent History GI Surgical History: Cholecystectomy Female Surgical History: Hysterectomy, Other Other Surgical History: thyriodectomy, R brest surgery - Social History Smoking Status: Never smoker Exposure to second hand smoke: Yes Alcohol: None Drug Use: none - Physical Exam Vital Signs: Vital Signs - 24 hr Temp Pulse Resp BP BP Pulse Ox 10/26/23 12:27 97 10/26/23 11:00 82 16 112/73 97 10/26/23 10:30 100/63 97 10/26/23 10:00 81 100/65 92 L 10/26/23 09:30 89 102/58 95 10/26/23 09:00 104/62 98 10/26/23 08:59 18 96 10/26/23 08:48 97.6 F 85 18 110/70 96 General Appearance: no apparent distress, alert Neurologic Exam: alert, oriented x 3, cooperative, normal mood/affect, nml cerebellar function, nml station & gait, sensation nml, No motor deficits Eye Exam: PERRL/EOMI, eyes nml inspection Ears, Nose, Throat Exam: normal ENT inspection, TMs normal, pharynx normal, moist mucous membranes Neck Exam: normal inspection, non-tender, supple, full range of motion Respiratory Exam: normal breath sounds, lungs clear, No respiratory distress Cardiovascular Exam: regular rate/rhythm, normal heart sounds, normal peripheral pulses Gastrointestinal/Abdomen Exam: soft, normal bowel sounds, No tenderness, No mass Back Exam: normal inspection, normal range of motion, No CVA tenderness, No vertebral tenderness Extremity Exam: normal inspection, normal range of motion, pelvis stable Skin Exam: normal color, warm, dry, No rash Lymphatic Exam: No adenopathy Results - Labs Lab/Micro Results: Lab Results-Last 24 Hours 10/26/23 10/26/23 10/26/23 Range/Units 09:13 09:25 09:25 WBC 9.3 (4.0-10.5) x10^3/uL RBC 3.54 L (4.1-5.4) x10^6/uL Hgb 10.7 L (12.0-16.0) g/dL Hct 32.7 L (35-47) % MCV 92.4 (78-100) fL MCH 30.2 (26-32) pg MCHC 32.7 (32-36) g/dL RDW 13.0 (11.5-14.0) % Plt Count 314 (150-450) x10^3/uL MPV 10.9 (7.5-11.0) fL Gran % 83.1 H (36.0-66.0) % Immature Gran % (Auto) 0.9 H (0.00-0.4) % Nucleat RBC Rel Count 0.0 (0.00-0.1) % Eos # (Auto) 0.05 (0-0.5) x10^3/uL Immature Gran # (Auto) 0.08 H (0.00-0.03) x10^3u/L Absolute Lymphs (auto) 0.79 L (1.0-4.6) x10^3/uL Absolute Monos (auto) 0.61 (0.0-1.3) x10^3/uL Absolute Nucleated RBC 0.00 (0.00-0.01) x10^3u/L Lymphocytes % 8.5 L (24.0-44.0) % Monocytes % 6.6 (0.0-12.0) % Eosinophils % 0.5 (0.00-5.0) % Basophils % 0.4 (0.0-0.4) % Absolute Granulocytes 7.70 H (1.4-6.9) x10^3/uL Basophils # 0.04 (0-0.4) x10^3/uL PT (9.4-12.5) SECONDS INR (0.8-3.0) APTT (25.1-36.5) SECONDS D-Dimer (0.0-0.50) mg/L Sodium 138 (137-145) mmol/L Potassium 4.2 (3.5-5.1) mmol/L Chloride 104 (98-107) mmol/L Carbon Dioxide 24 (22-30) mmol/L Anion Gap 13.6 (5-15) MEQ/L BUN 56 H (7-17) mg/dL Creatinine 0.89 (0.52-1.04) mg/dL Estimated GFR 66.7 ML/MIN Glucose 167 H (74-106) mg/dL Lactic Acid 2.3 H (0.4-2.0) Calcium 9.3 (8.4-10.2) mg/dL Total Bilirubin 0.50 (0.2-1.3) mg/dL AST 30 (14-36) U/L ALT 19 (0-35) U/L Alkaline Phosphatase 43 (38-126) U/L Troponin I (0.000-0.034) ng/mL NT-Pro-B Natriuret Pep < 20.0 (<300) pg/mL Serum Total Protein 6.5 (6.3-8.2) g/dL Albumin 3.8 (3.5-5.0) g/dL Amylase 70 (30-110) U/L Lipase 107 (23-300) U/L Urine Color (Yellow) Urine Appearance (Clear) Urine pH (4.6-8.0) Ur Specific Redig (1.005-1.030) Urine Protein (Negative) Urine Glucose (UA) (Negative) mg/dL Urine Ketones (Negative) Urine Blood (Negative) Urine Nitrite (Negative) Urine Bilirubin (Negative) Urine Urobilinogen (0.2) mg/dL Ur Leukocyte Esterase (Negative) U Hyaline Cast (Auto) (0-2) /LPF Urine Microscopic RBC (0-5) /HPF Urine Microscopic WBC (0-5) /HPF Ur Epithelial Cells (None Seen) /HPF Urine Bacteria (None Seen) /HPF Urine Culture Reflexed (NO) Influenza Type A Ag (NEGATIVE) Influenza Type B Ag (NEGATIVE) RSV (PCR) (NEGATIVE) SARS-CoV-2 (PCR) (NEGATIVE) ABO Group Rh Factor Antibody Screen (NEGATIVE) 10/26/23 10/26/23 10/26/23 Range/Units 09:25 09:25 10:10 WBC (4.0-10.5) x10^3/uL RBC (4.1-5.4) x10^6/uL Hgb (12.0-16.0) g/dL Hct (35-47) % MCV (78-100) fL MCH (26-32) pg MCHC (32-36) g/dL RDW (11.5-14.0) % Plt Count (150-450) x10^3/uL MPV (7.5-11.0) fL Gran % (36.0-66.0) % Immature Gran % (Auto) (0.00-0.4) % Nucleat RBC Rel Count (0.00-0.1) % Eos # (Auto) (0-0.5) x10^3/uL Immature Gran # (Auto) (0.00-0.03) x10^3u/L Absolute Lymphs (auto) (1.0-4.6) x10^3/uL Absolute Monos (auto) (0.0-1.3) x10^3/uL Absolute Nucleated RBC (0.00-0.01) x10^3u/L Lymphocytes % (24.0-44.0) % Monocytes % (0.0-12.0) % Eosinophils % (0.00-5.0) % Basophils % (0.0-0.4) % Absolute Granulocytes (1.4-6.9) x10^3/uL Basophils # (0-0.4) x10^3/uL PT 10.9 (9.4-12.5) SECONDS INR 1.00 (0.8-3.0) APTT 20.7 L (25.1-36.5) SECONDS D-Dimer 0.58 H (0.0-0.50) mg/L Sodium (137-145) mmol/L Potassium (3.5-5.1) mmol/L Chloride (98-107) mmol/L Carbon Dioxide (22-30) mmol/L Anion Gap (5-15) MEQ/L BUN (7-17) mg/dL Creatinine (0.52-1.04) mg/dL Estimated GFR ML/MIN Glucose (74-106) mg/dL Lactic Acid (0.4-2.0) Calcium (8.4-10.2) mg/dL Total Bilirubin (0.2-1.3) mg/dL AST (14-36) U/L ALT (0-35) U/L Alkaline Phosphatase (38-126) U/L Troponin I < 0.012 (0.000-0.034) ng/mL NT-Pro-B Natriuret Pep (<300) pg/mL Serum Total Protein (6.3-8.2) g/dL Albumin (3.5-5.0) g/dL Amylase (30-110) U/L Lipase (23-300) U/L Urine Color (Yellow) Urine Appearance (Clear) Urine pH (4.6-8.0) Ur Specific Redig (1.005-1.030) Urine Protein (Negative) Urine Glucose (UA) (Negative) mg/dL Urine Ketones (Negative) Urine Blood (Negative) Urine Nitrite (Negative) Urine Bilirubin (Negative) Urine Urobilinogen (0.2) mg/dL Ur Leukocyte Esterase (Negative) U Hyaline Cast (Auto) (0-2) /LPF Urine Microscopic RBC (0-5) /HPF Urine Microscopic WBC (0-5) /HPF Ur Epithelial Cells (None Seen) /HPF Urine Bacteria (None Seen) /HPF Urine Culture Reflexed (NO) Influenza Type A Ag (NEGATIVE) Influenza Type B Ag (NEGATIVE) RSV (PCR) (NEGATIVE) SARS-CoV-2 (PCR) (NEGATIVE) ABO Group O Rh Factor POSITIVE Antibody Screen NEGATIVE (NEGATIVE) 10/26/23 10/26/23 Range/Units 10:10 10:54 WBC (4.0-10.5) x10^3/uL RBC (4.1-5.4) x10^6/uL Hgb (12.0-16.0) g/dL Hct (35-47) % MCV (78-100) fL MCH (26-32) pg MCHC (32-36) g/dL RDW (11.5-14.0) % Plt Count (150-450) x10^3/uL MPV (7.5-11.0) fL Gran % (36.0-66.0) % Immature Gran % (Auto) (0.00-0.4) % Nucleat RBC Rel Count (0.00-0.1) % Eos # (Auto) (0-0.5) x10^3/uL Immature Gran # (Auto) (0.00-0.03) x10^3u/L Absolute Lymphs (auto) (1.0-4.6) x10^3/uL Absolute Monos (auto) (0.0-1.3) x10^3/uL Absolute Nucleated RBC (0.00-0.01) x10^3u/L Lymphocytes % (24.0-44.0) % Monocytes % (0.0-12.0) % Eosinophils % (0.00-5.0) % Basophils % (0.0-0.4) % Absolute Granulocytes (1.4-6.9) x10^3/uL Basophils # (0-0.4) x10^3/uL PT (9.4-12.5) SECONDS INR (0.8-3.0) APTT (25.1-36.5) SECONDS D-Dimer (0.0-0.50) mg/L Sodium (137-145) mmol/L Potassium (3.5-5.1) mmol/L Chloride (98-107) mmol/L Carbon Dioxide (22-30) mmol/L Anion Gap (5-15) MEQ/L BUN (7-17) mg/dL Creatinine (0.52-1.04) mg/dL Estimated GFR ML/MIN Glucose (74-106) mg/dL Lactic Acid (0.4-2.0) Calcium (8.4-10.2) mg/dL Total Bilirubin (0.2-1.3) mg/dL AST (14-36) U/L ALT (0-35) U/L Alkaline Phosphatase (38-126) U/L Troponin I (0.000-0.034) ng/mL NT-Pro-B Natriuret Pep (<300) pg/mL Serum Total Protein (6.3-8.2) g/dL Albumin (3.5-5.0) g/dL Amylase (30-110) U/L Lipase (23-300) U/L Urine Color Yellow (Yellow) Urine Appearance Clear (Clear) Urine pH 7.0 (4.6-8.0) Ur Specific Redig 1.020 (1.005-1.030) Urine Protein Negative (Negative) Urine Glucose (UA) Negative (Negative) mg/dL Urine Ketones Trace A (Negative) Urine Blood Negative (Negative) Urine Nitrite Negative (Negative) Urine Bilirubin Negative (Negative) Urine Urobilinogen 0.2 (0.2) mg/dL Ur Leukocyte Esterase Negative (Negative) U Hyaline Cast (Auto) NONE SEEN (0-2) /LPF Urine Microscopic RBC 0-2 (0-5) /HPF Urine Microscopic WBC 0-2 (0-5) /HPF Ur Epithelial Cells Rare (None Seen) /HPF Urine Bacteria None Seen (None Seen) /HPF Urine Culture Reflexed NO (NO) Influenza Type A Ag NEGATIVE (NEGATIVE) Influenza Type B Ag NEGATIVE (NEGATIVE) RSV (PCR) NEGATIVE (NEGATIVE) SARS-CoV-2 (PCR) NEGATIVE (NEGATIVE) ABO Group Rh Factor Antibody Screen (NEGATIVE) - Radiology Impressions Radiology Exams & Impressions: Radiology Procedures Category Date Time Status CHEST 1 VIEW (PORTABLE) Stat Exams 10/26/23 09:00 Completed Assessment/Plan (1) Lactic acidosis Current Visit: Yes Status: Acute Assessment & Plan: - 2:2 N/V - Lactic acid 2.3 @ 9:13- trend - repeat lab ordered. - NS @ 100ml/hr started in ER Code(s): E87.20 - ACIDOSIS, UNSPECIFIED (2) Nausea & vomiting Current Visit: Yes Status: Acute Assessment & Plan: - Zofran PRN - Pt c/o dark tarry emesis @ home. - Protonix IV gtt started in ER - Change to protonix 40mg IV BID - Tele - Monitor Hgb/Hct Q6 - Hgb stable at 10.7 Code(s): R11.2 - NAUSEA WITH VOMITING, UNSPECIFIED (3) SOB (shortness of breath) Current Visit: Yes Status: Acute Assessment & Plan: - Improved with laying down. - Chest XR negative - O2 97% on RA Code(s): R06.02 - SHORTNESS OF BREATH (4) Dehydration Current Visit: Yes Status: Acute Assessment & Plan: - 2:2 N/V - IV fluids Code(s): E86.0 - DEHYDRATION (5) Orthostatic hypotension Current Visit: Yes Status: Acute Assessment & Plan: - As seen in ER - will recheck in AM Code(s): I95.1 - ORTHOSTATIC HYPOTENSION (6) Hypothyroidism Current Visit: Yes Status: Acute Assessment & Plan: - Continue synthroid Code(s): E03.9 - HYPOTHYROIDISM, UNSPECIFIED (7) Post-COVID chronic cough Current Visit: Yes Status: Acute Assessment & Plan: - tessalon perles PRN Code(s): R05.3 - CHRONIC COUGH; U09.9 - POST COVID-19 CONDITION, UNSPECIFIED (8) Headache Current Visit: Yes Status: Acute Assessment & Plan: - Tylenol PRN - With associated photophobia VTE: Plavix held for now PPI: Protonix Next of Kin: Mally Virgen [phone] D/C plan: possibly tomorrow Code(s): R51.9 - HEADACHE, UNSPECIFIED
[2023-10-26] MEDS ORDERED: Tessalon Perles 100 MG PO PRN (14:11)
[2023-10-26 15:28] LABS: Hematocrit 26.7 % (35-47); Hemoglobin 8.2 g/dL (12.0-16.0)
[2023-10-26] MEDS ORDERED: ULTRAM 50 MG PO PRN (19:47)
[2023-10-26] MEDS: PROTONIX 40 MG IV IV SCH (20:03)
[2023-10-26] MEDS: Coreg PO SCH (20:11)
[2023-10-26 22:05] LABS: Hematocrit 23.8 % (35-47); Hemoglobin 7.6 g/dL (12.0-16.0)
[2023-10-27 05:04] LABS: Hematocrit 23.2 % (35-47); Hemoglobin 7.1 g/dL (12.0-16.0); Mean Cell Volume 95.1 fL (78-100); Mean Corpuscular Hemoglobin 29.1 pg (26-32); Mean Corpuscular Hgb Concent. 30.6 g/dL (32-36); Mean Platelet Volume 10.8 fL (7.5-11.0); Platelet Count 181 x10^3/uL (150-450); Red Blood Count 2.44 x10^6/uL (4.1-5.4); Red Cell Distribution Width 13.3 % (11.5-14.0)
[2023-10-27 05:14] LABS: ALBUMIN 2.7 g/dL (3.5-5.0); ANION GAP 6.8 MEQ/L (5-15); BILIRUBIN,TOTAL 0.1 mg/dL (0.2-1.3); Calcium 7.6 mg/dL (8.4-10.2); Creatinine 1 0.84 mg/dL (0.52-1.04); EST GLOMERULAR FILTRATION RATE 71.5 ML/MIN; Potassium 3.7 mmol/L (3.5-5.1); Total Protein 4.9 g/dL (6.3-8.2)
[2023-10-27] MEDS: Sodium Chloride 0.9% 1000 ML 1,000 ML IV SCH (09:48)
[2023-10-27] MEDS: PROTONIX 40 MG IV IV SCH ×2 (09:51→23:19)
--- NOTE | 2023-10-27 09:53 | PCM.NOTE ---
Date and Time: 10/27/23 0948 Subjective Assessment: 10/26/23 is a 78 year old female with PMHX of HTN, hypothyroidism, thryroidectomy, GERD, headaches, and glaucoma. She presented to the ER today with complaints of shortness of breath, not feeling well, nausea, and vomiting with black tarry emesis. She epxlains she is ok when laying and sitting but SOB is worse with standing. This all started at midnight last night. IV fluids and Protonix gtt started in ER. She reports a post COVID cough for 2 weeks now that is dry. She also has a H/A with associated photophobia. Chest XR negative. Hgb stable at 10.7. WBC normal. COVID and flu negative. Will continue IV fluids as pt had orthostatic hypotension in ER. Continue PPI IV. She denies CP, abd. pain. 10/27/23 Pt resting in bed. She states she is feeling better today. She is sitting up in bed without any concerns. Breathing has improved. She has no overnight events, denies N/V. No dark or bloody stools. Hgb 7.1 this AM. Pt has been NPO since midnight. Surgery consulted for possible EGD. Unable to TBC nuclear med bleeding study as there is no tech available until . Will continue protonix and IV fluids. She denies CP, SOB, abd. pain, N/V/D. - Review of Systems Constitutional: No Fever, No Chills Eyes: No Symptoms Ears, Nose, & Throat: No Symptoms Respiratory: Cough, No Short Of Breath Cardiac: No Chest Pain, No Edema, No Syncope Abdominal/Gastrointestinal: No Abdominal Pain, No Nausea, No Vomiting, No Diarrhea Genitourinary Symptoms: No Dysuria Musculoskeletal: No Back Pain, No Neck Pain Skin: No Rash Neurological: No Dizziness, No Focal Weakness, No Sensory Changes Psychological: No Symptoms Endocrine: No Symptoms Hematologic/Lymphatic: No Symptoms Immunological/Allergic: No Symptoms Objective Exam General Appearance: no apparent distress, alert Neurologic Exam: alert, oriented x 3, cooperative, normal mood/affect, nml cerebellar function, sensation nml, No motor deficits Skin Exam: normal color, warm, dry Eye Exam: PERRL, EOMI, eyes nml inspection Ears, Nose, Throat Exam: normal ENT inspection, pharynx normal, moist mucous membranes Neck Exam: normal inspection, non-tender, supple, full range of motion Respiratory Exam: normal breath sounds, lungs clear, No respiratory distress Cardiovascular Exam: regular rate/rhythm, normal heart sounds Gastrointestinal/Abdomen Exam: soft, No tenderness, No mass Extremity Exam: normal inspection, normal range of motion Back Exam: normal inspection, normal range of motion, No CVA tenderness, No vertebral tenderness Pelvic Exam: deferred Rectal Exam: deferred OBJECTIVE DATA Vital Signs: Vital Signs - 24 hr Temp Pulse Resp BP BP Pulse Ox 10/27/23 09:46 69 130/58 10/27/23 06:31 97.8 F 73 16 121/59 95 10/27/23 03:03 98.6 F 78 16 137/65 96 10/26/23 23:31 97.9 F 76 16 111/52 97 10/26/23 19:21 98.2 F 95 H 16 105/56 95 10/26/23 16:00 98.7 F 80 17 115/55 98 10/26/23 13:06 97.6 F 77 17 130/60 97 10/26/23 12:27 97 10/26/23 11:00 82 16 112/73 97 10/26/23 10:30 100/63 97 10/26/23 10:00 81 100/65 92 L Pain Assessment - Last Documented Pain Intensity 0 [facility] Intake and Output: Intake & Output 10/24/23 10/25/23 10/26/23 10/27/23 11:59 11:59 11:59 11:59 Intake Total 1380 Output Total 900 Balance 480 Weight 80.4 kg 81.3 kg Lab Results: Lab Results-Last 24 Hours 10/26/23 10/26/23 10/26/23 Range/Units 09:20 09:25 09:25 WBC (4.0-10.5) x10^3/uL RBC (4.1-5.4) x10^6/uL Hgb (12.0-16.0) g/dL Hct (35-47) % MCV (78-100) fL MCH (26-32) pg MCHC (32-36) g/dL RDW (11.5-14.0) % Plt Count (150-450) x10^3/uL MPV (7.5-11.0) fL PT 10.9 (9.4-12.5) SECONDS INR 1.00 (0.8-3.0) APTT 20.7 L (25.1-36.5) SECONDS D-Dimer 0.58 H (0.0-0.50) mg/L Sodium 138 (137-145) mmol/L Potassium 4.2 (3.5-5.1) mmol/L Chloride 104 (98-107) mmol/L Carbon Dioxide 24 (22-30) mmol/L Anion Gap 13.6 (5-15) MEQ/L BUN 56 H (7-17) mg/dL Creatinine 0.89 (0.52-1.04) mg/dL Estimated GFR 66.7 ML/MIN Glucose 167 H (74-106) mg/dL POC Glucometer (74 to 106) mg/dL Hemoglobin A1c (4.5-6.0) % Lactic Acid (0.4-2.0) Calcium 9.3 (8.4-10.2) mg/dL Total Bilirubin 0.50 (0.2-1.3) mg/dL AST 30 (14-36) U/L ALT 19 (0-35) U/L Alkaline Phosphatase 43 (38-126) U/L Troponin I (0.000-0.034) ng/mL NT-Pro-B Natriuret Pep < 20.0 (<300) pg/mL Serum Total Protein 6.5 (6.3-8.2) g/dL Albumin 3.8 (3.5-5.0) g/dL Amylase 70 (30-110) U/L Lipase 107 (23-300) U/L TSH 3rd Generation 4.000 (0.47-4.68) mIU/L Urine Color (Yellow) Urine Appearance (Clear) Urine pH (4.6-8.0) Ur Specific Mallory (1.005-1.030) Urine Protein (Negative) Urine Glucose (UA) (Negative) mg/dL Urine Ketones (Negative) Urine Blood (Negative) Urine Nitrite (Negative) Urine Bilirubin (Negative) Urine Urobilinogen (0.2) mg/dL Ur Leukocyte Esterase (Negative) U Hyaline Cast (Auto) (0-2) /LPF Urine Microscopic RBC (0-5) /HPF Urine Microscopic WBC (0-5) /HPF Ur Epithelial Cells (None Seen) /HPF Urine Bacteria (None Seen) /HPF Urine Culture Reflexed (NO) Influenza Type A Ag (NEGATIVE) Influenza Type B Ag (NEGATIVE) RSV (PCR) (NEGATIVE) SARS-CoV-2 (PCR) (NEGATIVE) ABO Group Rh Factor Antibody Screen (NEGATIVE) 10/26/23 10/26/23 10/26/23 Range/Units 09:25 09:25 10:10 WBC (4.0-10.5) x10^3/uL RBC (4.1-5.4) x10^6/uL Hgb (12.0-16.0) g/dL Hct (35-47) % MCV (78-100) fL MCH (26-32) pg MCHC (32-36) g/dL RDW (11.5-14.0) % Plt Count (150-450) x10^3/uL MPV (7.5-11.0) fL PT (9.4-12.5) SECONDS INR (0.8-3.0) APTT (25.1-36.5) SECONDS D-Dimer (0.0-0.50) mg/L Sodium (137-145) mmol/L Potassium (3.5-5.1) mmol/L Chloride (98-107) mmol/L Carbon Dioxide (22-30) mmol/L Anion Gap (5-15) MEQ/L BUN (7-17) mg/dL Creatinine (0.52-1.04) mg/dL Estimated GFR ML/MIN Glucose (74-106) mg/dL POC Glucometer (74 to 106) mg/dL Hemoglobin A1c 5.40 (4.5-6.0) % Lactic Acid (0.4-2.0) Calcium (8.4-10.2) mg/dL Total Bilirubin (0.2-1.3) mg/dL AST (14-36) U/L ALT (0-35) U/L Alkaline Phosphatase (38-126) U/L Troponin I < 0.012 (0.000-0.034) ng/mL NT-Pro-B Natriuret Pep (<300) pg/mL Serum Total Protein (6.3-8.2) g/dL Albumin (3.5-5.0) g/dL Amylase (30-110) U/L Lipase (23-300) U/L TSH 3rd Generation (0.47-4.68) mIU/L Urine Color (Yellow) Urine Appearance (Clear) Urine pH (4.6-8.0) Ur Specific Mallory (1.005-1.030) Urine Protein (Negative) Urine Glucose (UA) (Negative) mg/dL Urine Ketones (Negative) Urine Blood (Negative) Urine Nitrite (Negative) Urine Bilirubin (Negative) Urine Urobilinogen (0.2) mg/dL Ur Leukocyte Esterase (Negative) U Hyaline Cast (Auto) (0-2) /LPF Urine Microscopic RBC (0-5) /HPF Urine Microscopic WBC (0-5) /HPF Ur Epithelial Cells (None Seen) /HPF Urine Bacteria (None Seen) /HPF Urine Culture Reflexed (NO) Influenza Type A Ag (NEGATIVE) Influenza Type B Ag (NEGATIVE) RSV (PCR) (NEGATIVE) SARS-CoV-2 (PCR) (NEGATIVE) ABO Group O Rh Factor POSITIVE Antibody Screen NEGATIVE (NEGATIVE) 10/26/23 10/26/23 10/26/23 Range/Units 10:10 10:54 11:18 WBC (4.0-10.5) x10^3/uL RBC (4.1-5.4) x10^6/uL Hgb (12.0-16.0) g/dL Hct (35-47) % MCV (78-100) fL MCH (26-32) pg MCHC (32-36) g/dL RDW (11.5-14.0) % Plt Count (150-450) x10^3/uL MPV (7.5-11.0) fL PT (9.4-12.5) SECONDS INR (0.8-3.0) APTT (25.1-36.5) SECONDS D-Dimer (0.0-0.50) mg/L Sodium (137-145) mmol/L Potassium (3.5-5.1) mmol/L Chloride (98-107) mmol/L Carbon Dioxide (22-30) mmol/L Anion Gap (5-15) MEQ/L BUN (7-17) mg/dL Creatinine (0.52-1.04) mg/dL Estimated GFR ML/MIN Glucose (74-106) mg/dL POC Glucometer (74 to 106) mg/dL Hemoglobin A1c (4.5-6.0) % Lactic Acid 0.9 (0.4-2.0) Calcium (8.4-10.2) mg/dL Total Bilirubin (0.2-1.3) mg/dL AST (14-36) U/L ALT (0-35) U/L Alkaline Phosphatase (38-126) U/L Troponin I (0.000-0.034) ng/mL NT-Pro-B Natriuret Pep (<300) pg/mL Serum Total Protein (6.3-8.2) g/dL Albumin (3.5-5.0) g/dL Amylase (30-110) U/L Lipase (23-300) U/L TSH 3rd Generation (0.47-4.68) mIU/L Urine Color Yellow (Yellow) Urine Appearance Clear (Clear) Urine pH 7.0 (4.6-8.0) Ur Specific Mallory 1.020 (1.005-1.030) Urine Protein Negative (Negative) Urine Glucose (UA) Negative (Negative) mg/dL Urine Ketones Trace A (Negative) Urine Blood Negative (Negative) Urine Nitrite Negative (Negative) Urine Bilirubin Negative (Negative) Urine Urobilinogen 0.2 (0.2) mg/dL Ur Leukocyte Esterase Negative (Negative) U Hyaline Cast (Auto) NONE SEEN (0-2) /LPF Urine Microscopic RBC 0-2 (0-5) /HPF Urine Microscopic WBC 0-2 (0-5) /HPF Ur Epithelial Cells Rare (None Seen) /HPF Urine Bacteria None Seen (None Seen) /HPF Urine Culture Reflexed NO (NO) Influenza Type A Ag NEGATIVE (NEGATIVE) Influenza Type B Ag NEGATIVE (NEGATIVE) RSV (PCR) NEGATIVE (NEGATIVE) SARS-CoV-2 (PCR) NEGATIVE (NEGATIVE) ABO Group Rh Factor Antibody Screen (NEGATIVE) 10/26/23 10/26/23 10/26/23 Range/Units 15:24 16:32 21:19 WBC (4.0-10.5) x10^3/uL RBC (4.1-5.4) x10^6/uL Hgb 8.2 L D (12.0-16.0) g/dL Hct 26.7 L (35-47) % MCV (78-100) fL MCH (26-32) pg MCHC (32-36) g/dL RDW (11.5-14.0) % Plt Count (150-450) x10^3/uL MPV (7.5-11.0) fL PT (9.4-12.5) SECONDS INR (0.8-3.0) APTT (25.1-36.5) SECONDS D-Dimer (0.0-0.50) mg/L Sodium (137-145) mmol/L Potassium (3.5-5.1) mmol/L Chloride (98-107) mmol/L Carbon Dioxide (22-30) mmol/L Anion Gap (5-15) MEQ/L BUN (7-17) mg/dL Creatinine (0.52-1.04) mg/dL Estimated GFR ML/MIN Glucose (74-106) mg/dL POC Glucometer 146 H 111 H (74 to 106) mg/dL Hemoglobin A1c (4.5-6.0) % Lactic Acid (0.4-2.0) Calcium (8.4-10.2) mg/dL Total Bilirubin (0.2-1.3) mg/dL AST (14-36) U/L ALT (0-35) U/L Alkaline Phosphatase (38-126) U/L Troponin I (0.000-0.034) ng/mL NT-Pro-B Natriuret Pep (<300) pg/mL Serum Total Protein (6.3-8.2) g/dL Albumin (3.5-5.0) g/dL Amylase (30-110) U/L Lipase (23-300) U/L TSH 3rd Generation (0.47-4.68) mIU/L Urine Color (Yellow) Urine Appearance (Clear) Urine pH (4.6-8.0) Ur Specific Mallory (1.005-1.030) Urine Protein (Negative) Urine Glucose (UA) (Negative) mg/dL Urine Ketones (Negative) Urine Blood (Negative) Urine Nitrite (Negative) Urine Bilirubin (Negative) Urine Urobilinogen (0.2) mg/dL Ur Leukocyte Esterase (Negative) U Hyaline Cast (Auto) (0-2) /LPF Urine Microscopic RBC (0-5) /HPF Urine Microscopic WBC (0-5) /HPF Ur Epithelial Cells (None Seen) /HPF Urine Bacteria (None Seen) /HPF Urine Culture Reflexed (NO) Influenza Type A Ag (NEGATIVE) Influenza Type B Ag (NEGATIVE) RSV (PCR) (NEGATIVE) SARS-CoV-2 (PCR) (NEGATIVE) ABO Group Rh Factor Antibody Screen (NEGATIVE) 10/26/23 10/27/23 10/27/23 Range/Units 22:00 04:27 04:27 WBC 5.0 (4.0-10.5) x10^3/uL RBC 2.44 L (4.1-5.4) x10^6/uL Hgb 7.6 L 7.1 L (12.0-16.0) g/dL Hct 23.8 L 23.2 L (35-47) % MCV 95.1 (78-100) fL MCH 29.1 (26-32) pg MCHC 30.6 L (32-36) g/dL RDW 13.3 (11.5-14.0) % Plt Count 181 D (150-450) x10^3/uL MPV 10.8 (7.5-11.0) fL PT (9.4-12.5) SECONDS INR (0.8-3.0) APTT (25.1-36.5) SECONDS D-Dimer (0.0-0.50) mg/L Sodium 134 L (137-145) mmol/L Potassium 3.7 (3.5-5.1) mmol/L Chloride 109 H (98-107) mmol/L Carbon Dioxide 22 (22-30) mmol/L Anion Gap 6.8 (5-15) MEQ/L BUN 29 H (7-17) mg/dL Creatinine 0.84 (0.52-1.04) mg/dL Estimated GFR 71.5 ML/MIN Glucose 98 (74-106) mg/dL POC Glucometer (74 to 106) mg/dL Hemoglobin A1c (4.5-6.0) % Lactic Acid (0.4-2.0) Calcium 7.6 L D (8.4-10.2) mg/dL Total Bilirubin 0.10 L (0.2-1.3) mg/dL AST 23 (14-36) U/L ALT 14 (0-35) U/L Alkaline Phosphatase 31 L (38-126) U/L Troponin I (0.000-0.034) ng/mL NT-Pro-B Natriuret Pep (<300) pg/mL Serum Total Protein 4.9 L (6.3-8.2) g/dL Albumin 2.7 L (3.5-5.0) g/dL Amylase (30-110) U/L Lipase (23-300) U/L TSH 3rd Generation (0.47-4.68) mIU/L Urine Color (Yellow) Urine Appearance (Clear) Urine pH (4.6-8.0) Ur Specific Mallory (1.005-1.030) Urine Protein (Negative) Urine Glucose (UA) (Negative) mg/dL Urine Ketones (Negative) Urine Blood (Negative) Urine Nitrite (Negative) Urine Bilirubin (Negative) Urine Urobilinogen (0.2) mg/dL Ur Leukocyte Esterase (Negative) U Hyaline Cast (Auto) (0-2) /LPF Urine Microscopic RBC (0-5) /HPF Urine Microscopic WBC (0-5) /HPF Ur Epithelial Cells (None Seen) /HPF Urine Bacteria (None Seen) /HPF Urine Culture Reflexed (NO) Influenza Type A Ag (NEGATIVE) Influenza Type B Ag (NEGATIVE) RSV (PCR) (NEGATIVE) SARS-CoV-2 (PCR) (NEGATIVE) ABO Group Rh Factor Antibody Screen (NEGATIVE) 10/27/23 Range/Units 06:11 WBC (4.0-10.5) x10^3/uL RBC (4.1-5.4) x10^6/uL Hgb (12.0-16.0) g/dL Hct (35-47) % MCV (78-100) fL MCH (26-32) pg MCHC (32-36) g/dL RDW (11.5-14.0) % Plt Count (150-450) x10^3/uL MPV (7.5-11.0) fL PT (9.4-12.5) SECONDS INR (0.8-3.0) APTT (25.1-36.5) SECONDS D-Dimer (0.0-0.50) mg/L Sodium (137-145) mmol/L Potassium (3.5-5.1) mmol/L Chloride (98-107) mmol/L Carbon Dioxide (22-30) mmol/L Anion Gap (5-15) MEQ/L BUN (7-17) mg/dL Creatinine (0.52-1.04) mg/dL Estimated GFR ML/MIN Glucose (74-106) mg/dL POC Glucometer 103 (74 to 106) mg/dL Hemoglobin A1c (4.5-6.0) % Lactic Acid (0.4-2.0) Calcium (8.4-10.2) mg/dL Total Bilirubin (0.2-1.3) mg/dL AST (14-36) U/L ALT (0-35) U/L Alkaline Phosphatase (38-126) U/L Troponin I (0.000-0.034) ng/mL NT-Pro-B Natriuret Pep (<300) pg/mL Serum Total Protein (6.3-8.2) g/dL Albumin (3.5-5.0) g/dL Amylase (30-110) U/L Lipase (23-300) U/L TSH 3rd Generation (0.47-4.68) mIU/L Urine Color (Yellow) Urine Appearance (Clear) Urine pH (4.6-8.0) Ur Specific Mallory (1.005-1.030) Urine Protein (Negative) Urine Glucose (UA) (Negative) mg/dL Urine Ketones (Negative) Urine Blood (Negative) Urine Nitrite (Negative) Urine Bilirubin (Negative) Urine Urobilinogen (0.2) mg/dL Ur Leukocyte Esterase (Negative) U Hyaline Cast (Auto) (0-2) /LPF Urine Microscopic RBC (0-5) /HPF Urine Microscopic WBC (0-5) /HPF Ur Epithelial Cells (None Seen) /HPF Urine Bacteria (None Seen) /HPF Urine Culture Reflexed (NO) Influenza Type A Ag (NEGATIVE) Influenza Type B Ag (NEGATIVE) RSV (PCR) (NEGATIVE) SARS-CoV-2 (PCR) (NEGATIVE) ABO Group Rh Factor Antibody Screen (NEGATIVE) Radiology Exams: Radiology Procedures Category Date Time Status CHEST 1 VIEW (PORTABLE) Stat Exams 10/26/23 09:00 Completed Assessment/Plan (1) Lactic acidosis Current Visit: Yes Status: Acute Assessment & Plan: - 2:2 N/V - Lactic acid 2.3 @ 9:13- trend - repeat lab ordered. - NS @ 100ml/hr started in ER 10/27 - resolved Code(s): E87.20 - ACIDOSIS, UNSPECIFIED (2) Nausea & vomiting Current Visit: Yes Status: Acute Assessment & Plan: - Zofran PRN - Pt c/o dark tarry emesis @ home. - Protonix IV gtt started in ER - Change to protonix 40mg IV BID - Tele - Monitor Hgb/Hct Q6 - Hgb stable at 10.7 10/27 - resolved - Hgb 7.1 - GS consulted for possible EGD Code(s): R11.2 - NAUSEA WITH VOMITING, UNSPECIFIED (3) SOB (shortness of breath) Current Visit: Yes Status: Acute Assessment & Plan: - Improved with laying down. - Chest XR negative - O2 97% on RA 10/27 - improved Code(s): R06.02 - SHORTNESS OF BREATH (4) Dehydration Current Visit: Yes Status: Acute Assessment & Plan: - 2:2 N/V - IV fluids Code(s): E86.0 - DEHYDRATION (5) Orthostatic hypotension Current Visit: Yes Status: Acute Assessment & Plan: - As seen in ER - will recheck in AM 10/27/23 - Orthostats pending - PT eval Code(s): I95.1 - ORTHOSTATIC HYPOTENSION (6) Hypothyroidism Current Visit: Yes Status: Acute Assessment & Plan: - Continue synthroid - TSH 4.0 Code(s): E03.9 - HYPOTHYROIDISM, UNSPECIFIED (7) Post-COVID chronic cough Current Visit: Yes Status: Acute Assessment & Plan: - tessalon perles PRN Code(s): R05.3 - CHRONIC COUGH; U09.9 - POST COVID-19 CONDITION, UNSPECIFIED (8) Hyponatremia Current Visit: Yes Status: Acute Assessment & Plan: - Na+ 134- mild, trend - IVF Code(s): E87.1 - HYPO-OSMOLALITY AND HYPONATREMIA (9) Headache Current Visit: Yes Status: Acute Assessment & Plan: - Tylenol PRN - With associated photophobia 10/27 - resolved VTE: Plavix held for now PPI: Protonix Next of Kin: Mally Virgen [phone] D/C plan: possibly tomorrow Code(s): R51.9 - HEADACHE, UNSPECIFIED
[2023-10-27] MEDS ORDERED: NON-FORMULARY ITEM (Multivitamin [Multivitamin] 1 EACH Tablet) PO SCH (10:00)
[2023-10-27 10:46] LABS: Hematocrit 25.2 % (35-47); Hemoglobin 7.9 g/dL (12.0-16.0)
[2023-10-27] MEDS: Dextrose 5%-NS IV Solution 1000 ML 1,000 ML IV SCH ×2 (11:43→23:10)
[2023-10-27] MEDS: Coreg PO SCH ×2 (11:59→23:10)
[2023-10-27] MEDS: NORVASC 5 MG PO SCH (11:59)
[2023-10-27] MEDS: THERAGRAN MULTIVITAMIN PO SCH (12:00)
[2023-10-27] MEDS: SYNTHROID 100 MCG PO SCH (12:00)
[2023-10-27 16:14] LABS: Hematocrit 23.9 % (35-47); Hemoglobin 7.6 g/dL (12.0-16.0)
[2023-10-27] MEDS ORDERED: Lactated Ringers 1,000 ML IV ONE (19:54)
[2023-10-27] MEDS ORDERED: DIPRIVAN 200 MG/20 ML IV ONE (20:14)
[2023-10-27] MEDS ORDERED: Xylocaine-Mpf 2% 5 Ml Vial ONE (20:15)
[2023-10-27 23:20] LABS: Hematocrit 24.7 % (35-47); Hemoglobin 7.6 g/dL (12.0-16.0); Mean Cell Volume 95.4 fL (78-100); Mean Corpuscular Hemoglobin 29.3 pg (26-32); Mean Corpuscular Hgb Concent. 30.8 g/dL (32-36); Platelet Count 179 x10^3/uL (150-450); Red Blood Count 2.59 x10^6/uL (4.1-5.4); Red Cell Distribution Width 13.3 % (11.5-14.0); White Blood Count 4.2 x10^3/uL (4.0-10.5)
[2023-10-28 05:26] LABS: Hematocrit 23.4 % (35-47); Hemoglobin 7.5 g/dL (12.0-16.0); Mean Cell Volume 92.9 fL (78-100); Mean Corpuscular Hemoglobin 29.8 pg (26-32); Mean Corpuscular Hgb Concent. 32.1 g/dL (32-36); Mean Platelet Volume 10.4 fL (7.5-11.0); Platelet Count 185 x10^3/uL (150-450); Red Blood Count 2.52 x10^6/uL (4.1-5.4); Red Cell Distribution Width 13.3 % (11.5-14.0); White Blood Count 4.7 x10^3/uL (4.0-10.5)
[2023-10-28 06:09] LABS: Creatinine 1 0.85 mg/dL (0.52-1.04); EST GLOMERULAR FILTRATION RATE 70.5 ML/MIN; Potassium 3.7 mmol/L (3.5-5.1)
[2023-10-28 06:10] LABS: ALBUMIN 3.2 g/dL (3.5-5.0); ANION GAP 9.5 MEQ/L (5-15); BILIRUBIN,TOTAL 0.2 mg/dL (0.2-1.3); Calcium 8.1 mg/dL (8.4-10.2); Total Protein 5.7 g/dL (6.3-8.2)
[2023-10-28 07:22] VITALS: RESP 16
--- NOTE | 2023-10-28 09:06 | CONS ---
CONSULT DATE: 10/27/2023 HISTORY: A 78-year-old female had been on Plavix in the past. She said she vomited 2 pints of blood yesterday. Apparently she did come in. We were doing cases here all day yesterday. She came in last night. According to the patient she has some hypertension. She had borderline hemoglobin of 7 range on the last two overnight. She is not vomiting blood now. Her hemoglobin is just a little bit higher this morning. PAST MEDICAL HISTORY: Hypertension, reflux, hypothyroidism, glaucoma, headache, shortness of breath. She wears dentures. She is followed by Dr. Castillo from a cardiac standpoint. PAST SURGICAL HISTORY: Thyroidectomy in the past. Cholecystectomy. Hysterectomy. She had endoscopy some time ago. HOME MEDICATIONS: Excedrin for headaches according to the family members out in the waiting area. Medications prior to admission include amlodipine, carvedilol, vitamin D3, Plavix, hydralazine, levothyroxine, multivitamin. ALLERGIES: AMPICILLIN. CODEINE. EGG. YELLOW DYE. FAMILY HISTORY: Negative in regards to this specific problem. SOCIAL HISTORY: No smoking or alcohol abuse. REVIEW OF SYSTEMS: Twelve systems reviewed. No chest pain or palpitations other systems negative or noncontributory as above and per preadmission questionnaire. Vitals reviewed. Vital signs stable now. She denies any abdominal pain. LAB DATA AND TESTS: Labs reviewed. PHYSICAL EXAMINATION: GENERAL: Just slightly pale. HEENT: Sclera nonicteric. EOMI. Oral mucous membranes moist. NECK: No JVD. CHEST: Equal excursion, nonlabored breathing. CVS: Regular rhythm and pulse. ABDOMEN: Soft. No peritoneal signs. EXTREMITIES: No cyanosis. NEURO: Alert. PSYCH: Appropriate mood and affect. SKIN: Dry. IMPRESSION: A 78-year-old female with some weakness and shortness of breath. She has anemia with hematemesis. She is in need of upper endoscopy to evaluate for gastritis, peptic ulcer disease, esophagitis or other etiology. Risks and benefits explained in detail including but not limited to bleeding or infection, risk of bowel injury or perforation, risk of missed or nondiagnosis or incomplete exam possibly requiring barium swallow, other studies or procedures. General risk of anesthesia or sedation but not limited to, risk of cardiopulmonary event. Consent was obtained. Will proceed with EGD possible biopsy when OR time is available.
[2023-10-28] MEDS: PROTONIX 40 MG IV IV SCH (09:20)
--- NOTE | 2023-10-28 09:32 | OP ---
SURGERY DATE/TIME: 10/27/20232012 PREOPERATIVE DIAGNOSIS: Hematemesis, anemia, need for upper endoscopy. POSTOPERATIVE DIAGNOSES: 1) Antral ulcer just proximal to the pylorus. 2) Mild gastritis. 3) No active bleeding. PROCEDURES: EGD with cold biopsy of antral margin of the ulcer to evaluate for Helicobacter pylori and path. SURGEON: Dr. Ty Simms. ANESTHESIA: MAC. ESTIMATED BLOOD LOSS: Minimal. INDICATIONS: As noted above. Risks and benefits explained in detail and not limited to and consent obtained. DESCRIPTION OF PROCEDURE AND FINDINGS: The patient is taken to the endoscopy room. MAC anesthesia introduced. After official time out and no disagreement with planned procedure, bite block positioned. Video gastroscope easily passed down the esophagus through the patent pylorus to the junction of the third and fourth portion of the duodenum. There were no signs of any fresh or old blood in the duodenum. No sign of any ulcer in the duodenum. The scope pulled back in the stomach. She had some mild gastritis and gastric erythema, some congestion and edema. She definitely had an antral ulcer that was 2 or 3 cm from the pylorus and question whether she bled from this. It is not actively bleeding currently. Cold biopsy is taken of the margins of the ulcer. Good hemostasis noted. Evaluate for path and Helicobacter pylori. On retroflex, the gastroesophageal junction snug against the scope. No signs of any significant hiatal hernia. The scope is pulled back. Evidence of gastritis. No signs of any fresh or old blood. No signs of any active bleeding. The scope pulled back and gastroesophageal junction about 36 cm. The Z-line was crisp. No signs of any active bleeding from the esophagus. No signs of any obvious ulcers or lesions or esophageal erosion. The scope is withdrawn. No signs of any masses or mucosal lesions in the esophagus. The scope is withdrawn. The patient tolerated the procedure well. I discussed the findings with the family out in the waiting area. Again, she did have significant ulcer in the antral area just proximal to pylorus. There does not appear to be any other obvious source of the upper GI bleeding. She is to continue her proton pump inhibitor, avoid blood thinners. Otherwise, she will need follow up endoscopy nine or ten weeks [address] road to evaluate for healing. She is to avoid thinners and NSAID's.
[2023-10-28] MEDS: SYNTHROID 100 MCG PO SCH (09:45)
[2023-10-28] MEDS: Coreg PO SCH (09:45)
[2023-10-28] MEDS: NORVASC 5 MG PO SCH (09:45)
[2023-10-28] MEDS: THERAGRAN MULTIVITAMIN PO SCH (09:46)
--- NOTE | 2023-10-28 10:33 | PCM.DS ---
Discharge Summary Date of Admission: 10/26/23 13:05 Date of Discharge: 10/28/23 Admitting Physician: KELIN ARIAS MD Consults: Consults on Case 10/27/23 07:38 Consult Surgery ROUTINE Primary Care Provider: RODOLFO CHADWICK Allergies Allergies ampicillin Allergy (Verified 10/26/23 08:56) codeine Allergy (Verified 10/26/23 08:56) egg Allergy (Verified 10/26/23 08:56) yellow dye Allergy (Verified 10/26/23 08:56) Hospital Summary - Hospital Course Hospital Course: 10/26/23 is a 78 year old female with PMHX of HTN, hypothyroidism, thryroidectomy, GERD, headaches, and glaucoma. She presented to the ER today with complaints of shortness of breath, not feeling well, nausea, and vomiting with black tarry emesis. She epxlains she is ok when laying and sitting but SOB is worse with standing. This all started at midnight last night. IV fluids and Protonix gtt started in ER. She reports a post COVID cough for 2 weeks now that is dry. She also has a H/A with associated photophobia. Chest XR negative. Hgb stable at 10.7. WBC normal. COVID and flu negative. Will continue IV fluids as pt had orthostatic hypotension in ER. Continue PPI IV. She denies CP, abd. pain. 10/27/23 Pt resting in bed. She states she is feeling better today. She is sitting up in bed without any concerns. Breathing has improved. She has no overnight events, denies N/V. No dark or bloody stools. Hgb 7.1 this AM. Pt has been NPO since midnight. Surgery consulted for possible EGD. Unable to TBC nuclear med bleeding study as there is no tech available until . Will continue protonix and IV fluids. She denies CP, SOB, abd. pain, N/V/D. 10/28/23 Pt sitting up in bed. She is no longer SOB with walking or sitting. Hgb stable. She had an EGD last night and an ulcer was found but no bleeding. She is refusing protonix as she reports she had side effects such as hand swelling and itching of her face. Will D/C with Pepcid. Pt ok with this plan. She was alble to tolerate a regular diet this morning. She denies CP, SOB, abd. pain, N/V/D. - Vitals & Intake/Output Vital Signs: Vital Signs Temperature 97.3 F 10/28/23 07:21 Pulse Rate 62 10/28/23 07:21 Respiratory Rate 16 10/28/23 07:21 Blood Pressure 125/58 10/28/23 07:21 O2 Sat by Pulse Oximetry 94 L 10/28/23 07:21 Intake & Output: Intake & Output 10/25/23 10/26/23 10/27/23 10/28/23 11:59 11:59 11:59 11:59 Intake Total 1380 1815 Output Total 1400 750 Balance -20 1065 Weight 80.4 kg 81.3 kg 81.3 kg - Lab Result Diagrams: 10/28/23 05:18 10/28/23 05:18 Lab Results-Last 24 Hrs: Lab Results-Last 24 Hours 10/27/23 10/27/23 10/27/23 Range/Units 10:40 11:25 15:09 WBC (4.0-10.5) x10^3/uL RBC (4.1-5.4) x10^6/uL Hgb 7.9 L (12.0-16.0) g/dL Hct 25.2 L (35-47) % MCV (78-100) fL MCH (26-32) pg MCHC (32-36) g/dL RDW (11.5-14.0) % Plt Count (150-450) x10^3/uL MPV (7.5-11.0) fL Sodium (137-145) mmol/L Potassium (3.5-5.1) mmol/L Chloride (98-107) mmol/L Carbon Dioxide (22-30) mmol/L Anion Gap (5-15) MEQ/L BUN (7-17) mg/dL Creatinine (0.52-1.04) mg/dL Estimated GFR ML/MIN Glucose (74-106) mg/dL POC Glucometer 110 H 104 (74 to 106) mg/dL Calcium (8.4-10.2) mg/dL Total Bilirubin (0.2-1.3) mg/dL AST (14-36) U/L ALT (0-35) U/L Alkaline Phosphatase (38-126) U/L Serum Total Protein (6.3-8.2) g/dL Albumin (3.5-5.0) g/dL 10/27/23 10/27/23 10/27/23 Range/Units 16:08 22:32 23:15 WBC 4.2 (4.0-10.5) x10^3/uL RBC 2.59 L (4.1-5.4) x10^6/uL Hgb 7.6 L 7.6 L (12.0-16.0) g/dL Hct 23.9 L 24.7 L (35-47) % MCV 95.4 (78-100) fL MCH 29.3 (26-32) pg MCHC 30.8 L (32-36) g/dL RDW 13.3 (11.5-14.0) % Plt Count 179 (150-450) x10^3/uL MPV 10.0 (7.5-11.0) fL Sodium (137-145) mmol/L Potassium (3.5-5.1) mmol/L Chloride (98-107) mmol/L Carbon Dioxide (22-30) mmol/L Anion Gap (5-15) MEQ/L BUN (7-17) mg/dL Creatinine (0.52-1.04) mg/dL Estimated GFR ML/MIN Glucose (74-106) mg/dL POC Glucometer 100 (74 to 106) mg/dL Calcium (8.4-10.2) mg/dL Total Bilirubin (0.2-1.3) mg/dL AST (14-36) U/L ALT (0-35) U/L Alkaline Phosphatase (38-126) U/L Serum Total Protein (6.3-8.2) g/dL Albumin (3.5-5.0) g/dL 10/28/23 10/28/23 10/28/23 Range/Units 05:18 05:18 07:32 WBC 4.7 (4.0-10.5) x10^3/uL RBC 2.52 L (4.1-5.4) x10^6/uL Hgb 7.5 L (12.0-16.0) g/dL Hct 23.4 L (35-47) % MCV 92.9 (78-100) fL MCH 29.8 (26-32) pg MCHC 32.1 (32-36) g/dL RDW 13.3 (11.5-14.0) % Plt Count 185 (150-450) x10^3/uL MPV 10.4 (7.5-11.0) fL Sodium 137 (137-145) mmol/L Potassium 3.7 (3.5-5.1) mmol/L Chloride 108 H (98-107) mmol/L Carbon Dioxide 23 (22-30) mmol/L Anion Gap 9.5 (5-15) MEQ/L BUN 11 (7-17) mg/dL Creatinine 0.85 (0.52-1.04) mg/dL Estimated GFR 70.5 ML/MIN Glucose 124 H (74-106) mg/dL POC Glucometer 124 H (74 to 106) mg/dL Calcium 8.1 L (8.4-10.2) mg/dL Total Bilirubin 0.20 (0.2-1.3) mg/dL AST 22 (14-36) U/L ALT 14 (0-35) U/L Alkaline Phosphatase 41 (38-126) U/L Serum Total Protein 5.7 L (6.3-8.2) g/dL Albumin 3.2 L (3.5-5.0) g/dL Micro Results-Entire Visit: Accuchecks Date 10/28/23 Date 10/27/23 Date 10/27/23 Time 15:22 Time 11:35 - Procedures and Test Procedures and Tests throughout Hospitalization: Therapy Orders & Screens 10/27/23 07:27 PT Eval & Treat ( Order) ONCE Reason for Eval:: SOB with walking, weakness Diagnosis: Orthostatic hypotension, Dehydration Discharge Exam General Appearance: no apparent distress, alert Neurologic Exam: alert, oriented x 3, cooperative, normal mood/affect, nml cerebellar function, sensation nml, No motor deficits Eye Exam: PERRL, EOMI, eyes nml inspection Ears, Nose, Throat Exam: normal ENT inspection, pharynx normal, moist mucous membranes Neck Exam: normal inspection, non-tender, supple, full range of motion Respiratory Exam: normal breath sounds, lungs clear, No respiratory distress Cardiovascular Exam: regular rate/rhythm, normal heart sounds Gastrointestinal/Abdomen Exam: soft, No tenderness, No mass Pelvic Exam: deferred Rectal Exam: deferred Back Exam: normal inspection, normal range of motion, No CVA tenderness, No vertebral tenderness Extremity Exam: normal inspection, normal range of motion Skin Exam: normal color, warm, dry Final Diagnosis/Problem List - Final Discharge Diagnosis/Problem (1) Acute stomach ulcer Current Visit: Yes Status: Acute Assessment & Plan: - as seen with EGD per GS - Pt refuses protonix d/t side effects- will start pepcid OP - Hgb stable 7.5 - No hematemesis or dark or tarry stools since admission Code(s): K25.3 - ACUTE GASTRIC ULCER WITHOUT HEMORRHAGE OR PERFORATION (2) Lactic acidosis Current Visit: Yes Status: Acute Assessment & Plan: - 2:2 N/V - Lactic acid 2.3 @ 9:13- trend - repeat lab ordered. - NS @ 100ml/hr started in ER 10/27 - resolved Code(s): E87.20 - ACIDOSIS, UNSPECIFIED (3) Nausea & vomiting Current Visit: Yes Status: Acute Assessment & Plan: - Zofran PRN - Pt c/o dark tarry emesis @ home. - Protonix IV gtt started in ER - Change to protonix 40mg IV BID - Tele - Monitor Hgb/Hct Q6 - Hgb stable at 10.7 10/27 - resolved - Hgb 7.1 - GS consulted for possible EGD - EGD found ulcer - refused protonix d/t side effects 10/28 - D/C with pepcid since refusing protonix - able to tolerate regular diet - Hgb stable 7.5 Code(s): R11.2 - NAUSEA WITH VOMITING, UNSPECIFIED (4) SOB (shortness of breath) Current Visit: Yes Status: Acute Assessment & Plan: - Improved with laying down. - Chest XR negative - O2 97% on RA 10/27 - improved Code(s): R06.02 - SHORTNESS OF BREATH (5) Dehydration Current Visit: Yes Status: Acute Assessment & Plan: - 2:2 N/V - IV fluids 10/28 - eating and drinking well Code(s): E86.0 - DEHYDRATION (6) Orthostatic hypotension Current Visit: Yes Status: Acute Assessment & Plan: - As seen in ER - will recheck in AM 10/27/23 - Orthostats negative - PT eval Code(s): I95.1 - ORTHOSTATIC HYPOTENSION (7) Hypothyroidism Current Visit: Yes Status: Acute Assessment & Plan: - Continue synthroid - TSH 4.0 Code(s): E03.9 - HYPOTHYROIDISM, UNSPECIFIED (8) Post-COVID chronic cough Current Visit: Yes Status: Acute Assessment & Plan: - tessalon perles PRN Code(s): R05.3 - CHRONIC COUGH; U09.9 - POST COVID-19 CONDITION, UNSPECIFIED (9) Hyponatremia Current Visit: Yes Status: Acute Assessment & Plan: - Na+ 134- mild, trend - IVF .6 -Na+ 137- improved Code(s): E87.1 - HYPO-OSMOLALITY AND HYPONATREMIA (10) Headache Current Visit: Yes Status: Acute Assessment & Plan: - Tylenol PRN - With associated photophobia 10/27 - resolved Code(s): R51.9 - HEADACHE, UNSPECIFIED (11) Anemia Current Visit: Yes Status: Acute Assessment & Plan: - acute on chronic - f/u with PCP OP Code(s): D64.9 - ANEMIA, UNSPECIFIED - Discharge Discharge Date: 10/28/23 Disposition: Home, Self-Care Condition: Fair Prescriptions: Continue Multivitamin 1 tab PO DAILY carvediloL [Coreg] 6.25 mg PO BID Levothyroxine Sodium 100 Mcg [Synthroid 100 Mcg] 100 mcg PO DAILY Clopidogrel Bisulfate [Plavix] 75 mg PO DAILY Amlodipine Besylate 5 mg [Norvasc 5 mg] 5 mg PO DAILY Hydralazine HCl 50 mg PO TID Cholecalciferol (Vitamin D3) [Vitamin D3] 125 mcg PO DAILY Non-Formulary Drug [Non-Formulary Item] 500 mcg PO DAILY Additional Instructions: resume plavix in 2 weeks Follow up with: RODOLFO CHADWICK MD [Primary Care Provider] -
[2023-10-28 11:41] VITALS: PULSE 71; TEMP 96.5; O2SAT 99
[2023-10-28 12:01] VITALS: BP 126/59
== END 2023-10-28 12:37 | disposition home or self-care (01) ==
LOC: ED 08:47 → MED SURG 13:05
PROVIDERS: ADMIT Internal Medicine; ATTEND Internal Medicine
DX: K25.3 Acute gastric ulcer without hemorrhage or perforation (principal); E87.20 Acidosis, unspecified; R11.2 Nausea with vomiting, unspecified; K29.70 Gastritis, unspecified, without bleeding; R06.02 Shortness of breath; E86.0 Dehydration; I95.1 Orthostatic hypotension; E03.9 Hypothyroidism, unspecified; R05.3 Chronic cough; U09.9 Post COVID-19 condition, unspecified; E87.1 Hypo-osmolality and hyponatremia; R51.9 Headache, unspecified; I10 Essential (primary) hypertension; D64.9 Anemia, unspecified; Z79.899 Other long term (current) drug therapy; Z20.828 Contact with and (suspected) exposure to other viral communicable diseases
CPT/HCPCS: 0241U; 36000; 36415; 43239; 71045; 80053; 81001; 82150; 82947; 83036; 83605; 83690; 83880; 84443; 84484; 85014; 85018; 85025; 85027; 85379; 85610; 85730; 86850; 86900; 86901; 96365; 96366; 96374; 97161; 99285; Q3014; 93268; J2405; J2704; A9270-GY; G0378

== ENCOUNTER 2024-04-04 11:05 | Day surgery (SDC) | payer MEDICARE ==
[2024-04-04 11:25] VITALS: RESP 18
[2024-04-04 11:42] LABS: Absolute Neutrophil Ct (ANC) 4.35 x10^3/uL (1.4-6.9); BASOPHIL % 0.7 % (0.0-0.4); Basophil (Absolute #) 0.04 x10^3/uL (0-0.4); Eosinophil % 2.5 % (0.00-5.0); Eosinophil (Absolute #) 0.15 x10^3/uL (0-0.5); Hemoglobin 13.4 g/dL (12.0-16.0); IMMATURE GRAN # 0.02 x10^3u/L (0.00-0.03); IMMATURE GRAN % 0.3 % (0.00-0.4); Lymphocyte (Absolute #) 0.88 x10^3/uL (1.0-4.6); Lymphocytes % 14.8 % (24.0-44.0); Mean Corpuscular Hemoglobin 28.5 pg (26-32); Mean Corpuscular Hgb Concent. 32.7 g/dL (32-36); Monocyte (Absolute #) 0.52 x10^3/uL (0.0-1.3); Monocytes % 8.7 % (0.0-12.0); Platelet Count 267 x10^3/uL (150-450); Red Blood Count 4.71 x10^6/uL (4.1-5.4)
[2024-04-04] MEDS: Lactated Ringers 1,000 ML IV SCH (11:43)
[2024-04-04 12:14] LABS: ANION GAP 11.1 MEQ/L (5-15); Calcium 9.2 mg/dL (8.4-10.2); Creatinine 1 0.8 mg/dL (0.52-1.04); EST GLOMERULAR FILTRATION RATE 75.8 ML/MIN; Potassium 3.5 mmol/L (3.5-5.1)
[2024-04-04] MEDS ORDERED: Xylocaine-Mpf 2% 5 Ml Vial ONE (12:56)
[2024-04-04] MEDS ORDERED: DIPRIVAN 200 MG/20 ML IV ONE ×3 (12:56→14:18)
[2024-04-04] MEDS ORDERED: Versed 2 MG/2 ML Injection ONE (12:58)
[2024-04-04] MEDS ORDERED: GlucaGen 1 MG ONE (14:10)
[2024-04-04 15:04] VITALS: TEMP 97
[2024-04-04 15:17] VITALS: BP 119/72; PULSE 60; O2SAT 95
--- NOTE | 2024-04-07 09:31 | OP ---
PROCEDURE DATE/TIME: 04/04/2024 1300 PREOPERATIVE DIAGNOSIS: Reflux and screening. POSTOPERATIVE DIAGNOSES: 1) Hiatal hernia. 2) Gastritis. 3) Peptic ulcer disease. 4) Gastroesophageal reflux disease. 5) Anal tags. 6) Large internal and external hemorrhoids. 7) Diverticulosis. 8) Polyps. PROCEDURES: 1) EGD with biopsy. 2) Colonoscopy with hot snare polypectomies, cold snare polypectomy and cold biopsies. PROCEDURE PERFORMED BY: Erin Unger M.D. ANESTHESIA: MAC. COMPLICATIONS: None. ESTIMATED BLOOD LOSS: Minimal. PLAN: Reminder EGD three months, colonoscopy three years. SPECIMENS: 1) Antral ulcer biopsy. 2) Distal esophagus biopsy. 3) Cecal polyp. 4) Ascending colon polyp. 5) Ascending colon polyp jar #2. 6) Hepatic flexure polyp. 7) Transverse colon polyp. 8) Splenic flexure polyp. 9) Descending colon polyp. HISTORY: This is a 78-year-old female who presents with upper GI symptoms. She does have anemia from reflux and discomfort as well as due for colonoscopy. Risks, benefits, alternatives to the procedure has been discussed with the patient in detail. She understands and agrees and would like to proceed. I have done her H&P and consent with her. All questions have been answered to her satisfaction. DESCRIPTION OF PROCEDURE: She was brought back to the operative suite. Anesthesia induced. She was placed in the left lateral decubitus position. Complete time out was performed. The scope was then entered into the mouth, oropharynx, down into the esophagus, stomach and duodenum. She did have a significant ulcer in the antrum this appeared to encompass approximately 60% of the circumference. The majority of this was scar. However, there were active ulcer crater present medially and I took multiple biopsies around the periphery of the ulcer and sent these to pathology. She also had some gastritis throughout her stomach as well as a visible hiatal hernia. Her duodenum had some mild irritation but more minimal compared to the stomach and was generally more healthy. She also had inflammation in her distal esophagus consistent with reflux esophagitis and we took biopsies here to rule out Ignacio's. All biopsy sites were hemostatic. There were no other significant findings. The scope was then carefully withdrawn and the remainder of the esophagus looked normal. She then was repositioned for colonoscopy. First, a rectal inspection and rectal exam was done. She did have anal tags one that was moderate size anteriorly that looked extremely benign. I did not find any concerning findings here. She does have multiple enlarged hemorrhoids as well particularly her left posterior external hemorrhoid is enlarged but she does have additional hemorrhoids that are enlarged but that was not the largest. None of them are actively bleeding at this time. The scope was then entered and gently advanced to the level of the cecum. The prep was satisfactory but she did have quite a bit of liquid stool that we had to suction and irrigate. She also did have some spasm in the colon particularly in the left colon and so we did give her some Glucagon to help with the spasm. She had multiple diverticular pockets worse in the sigmoid including small and medium sized diverticula and then she had a few scattered diverticula up to at least the level of the transverse colon. She had many polyps. All polyps were taken in entirety. All polyps were retrieved. All sites were hemostatic after removal. The polyps as listed below: There were three cecal polyp, a 3 to 4 mm polyp that was semi-sessile taken with cold snare. A 2 mm semi-sessile polyp taken with cold forceps and then the third was 3 to 4 mm semi-sessile polyp taken with cold snare. There were multiple ascending colon polyps that were small. The first was taken with cold forceps. The second with cold snare and these were sent in the first jar. The next proximal ascending colon polyp was approximately 5 mm slightly larger than the other two, it was semi-pedunculated and it was taken with cold snare. She had a very small hepatic flexure polyp taken with cold forceps. She had multiple transverse colon polyps, a 3 to 4 mm sessile polyp taken with cold snare and then another similar polyp in size and structure taken with cold snare. She had one that was slightly larger than this that was taken with a hot snare that was over 5 mm and then she had multiple splenic flexure polyps two that were about 3 to 4 mm sessile taken with cold snare, one that was very small and taken with cold forceps and then she also had two descending colon polyps these were very small and taken with cold forceps in entirety (x2). The patient tolerated the procedure very well. There were no immediate complications. There were no other findings than those described above. All polyps again were removed in entirety and very hemostatic and then the scope was able to be withdrawn. I discussed the instructions with her family postoperatively. I also discussed the preliminary results. The patient is going to be following up with me closely as an outpatient. We have discussed medications as well and then we will go through her final pathology report and then I will plan to do another EGD in about three months to insure resolution of this ulcer and colonoscopy in approximately three years for surveillance due to the finding of many polyps. Final decision to be made after pathology report.
== END 2024-04-04 15:37 | disposition home or self-care (01) ==
LOC: SDC 11:05
PROVIDERS: ATTEND Surgery
DX: Z12.11 Encounter for screening for malignant neoplasm of colon (principal); K21.9 Gastro-esophageal reflux disease without esophagitis; K44.9 Diaphragmatic hernia without obstruction or gangrene; K29.70 Gastritis, unspecified, without bleeding; K27.9 Peptic ulcer, site unspecified, unspecified as acute or chronic, without hemorrhage or perforation; K64.4 Residual hemorrhoidal skin tags; K64.8 Other hemorrhoids; K57.30 Diverticulosis of large intestine without perforation or abscess without bleeding; D12.2 Benign neoplasm of ascending colon; D12.0 Benign neoplasm of cecum; D12.4 Benign neoplasm of descending colon; D12.3 Benign neoplasm of transverse colon
CPT/HCPCS: 36415; 80048; 85025; 93005; 99100; J1610; J2250; J2704

== ENCOUNTER 2024-07-04 09:22 | Day surgery (SDC) | payer MEDICARE ==
[2024-07-04] MEDS ORDERED: Lactated Ringers 1,000 ML IV ONE (09:27)
[2024-07-04] MEDS: Lactated Ringers 1,000 ML IV SCH (09:28)
[2024-07-04 09:49] VITALS: RESP 16
[2024-07-04] MEDS ORDERED: DIPRIVAN 200 MG/20 ML IV ONE ×4 (12:39→13:25)
[2024-07-04] MEDS ORDERED: Xylocaine-Mpf 2% 5 Ml Vial ONE (12:54)
[2024-07-04 13:25] VITALS: BP 132/86; PULSE 68; TEMP 98.6; O2SAT 94
--- NOTE | 2024-07-13 09:39 | OP ---
SURGERY DATE/TIME: 07/04/2024 [id number] PREOPERATIVE DIAGNOSIS: Peptic ulcer disease. POSTOPERATIVE DIAGNOSES: 1) Resolved peptic ulcer disease with residual gastritis and mild gastroesophageal reflux disease. 2) Trace hiatal hernia. PROCEDURE: Esophagogastroduodenoscopy with biopsies. SURGEON: Erin Unger MD ANESTHESIA: MAC. ESTIMATED BLOOD LOSS: Minimal. COMPLICATIONS: None. SPECIMENS: Old antral ulcer site biopsies. INDICATIONS: This is a patient who presents for surveillance EGD. She has a history of ulcers and abdominal pain. Her H and P and consent have all been completed and confirmed. All questions answered. DESCRIPTION OF PROCEDURE AND FINDINGS: She was then brought back to the operative suite. Anesthesia induced. She was laid in the left lateral decubitus position. Complete time-out was performed. Scope was gently inserted into the mouth, oropharynx down to the esophagus, stomach and then to the level of the second portion of the duodenum. The duodenum looked normal. In the stomach, the ulcers appear to be resolved. There is some residual gastritis and you can see the scars from old antral ulcers. I did biopsy, taking multiple biopsies at these sites and she did have residual gastritis as well and also sent these for H pylori testing and histology. All sites were biopsied with cold forceps and were hemostatic after biopsy. We did do a retroflexed view as well. There are no masses or areas of concern in the stomach. She does have a very subtle trace hiatal hernia. The scope was then able to be carefully withdrawn into the distal esophagus. She had some very minor reflux changes and slight weakness at the GE junction. Otherwise, the remainder of her esophagus is normal. There is no Ignacio disease. The scope was completely withdrawn. The patient tolerated the procedure very well. There are no immediate complications. She will be following up with me in office. She does have a PPI allergy and so she will be maintained on an H2 chau and Carafate with dietary and lifestyle changes as well.
== END 2024-07-04 13:38 | disposition home or self-care (01) ==
LOC: SDC 09:22
PROVIDERS: ATTEND Surgery
DX: K29.70 Gastritis, unspecified, without bleeding (principal); K27.9 Peptic ulcer, site unspecified, unspecified as acute or chronic, without hemorrhage or perforation; K21.9 Gastro-esophageal reflux disease without esophagitis; K44.9 Diaphragmatic hernia without obstruction or gangrene
CPT/HCPCS: 99100; J2704